=== PATIENT | female | born 1965 | race Caucasian/White ===

== ENCOUNTER 2020-05-08 15:13 | Outpatient (REF) | payer OTHER, SELFPAY ==
[2020-05-08 16:00] LABS: COVID-19 Test Negative (Negative)
== END 2020-05-08 15:14 | disposition home or self-care (01) ==
LOC: HO.LAB 15:13
PROVIDERS: PCP Internal Medicine; Visit Provider Internal Medicine
DX: Z20.828 Contact with and (suspected) exposure to other viral communicable diseases (principal)
CPT/HCPCS: 87635

== ENCOUNTER 2020-05-11 14:15 | Outpatient (REF) | payer OTHER, SELFPAY ==
[2020-05-11 15:09] LABS: COVID-19 Test Negative (Negative)
== END 2020-05-11 14:16 | disposition home or self-care (01) ==
LOC: HO.LAB 14:15
PROVIDERS: Visit Provider Internal Medicine
DX: Z20.828 Contact with and (suspected) exposure to other viral communicable diseases (principal)
CPT/HCPCS: 87635

== ENCOUNTER 2020-05-15 14:26 | Outpatient (REF) | payer OTHER, SELFPAY ==
[2020-05-15 14:44] LABS: COVID-19 Test Negative (Negative)
== END 2020-05-15 14:27 | disposition home or self-care (01) ==
LOC: HO.LAB 14:26
PROVIDERS: Visit Provider Internal Medicine
DX: Z20.828 Contact with and (suspected) exposure to other viral communicable diseases (principal)
CPT/HCPCS: 87635

== ENCOUNTER 2020-06-19 16:42 | Outpatient (REF) | payer OTHER, SELFPAY ==
[2020-06-19 17:50] LABS: COVID-19 Test Negative (Negative); IDNOW Serial# 55D5AD1C
== END 2020-06-19 16:43 | disposition home or self-care (01) ==
LOC: HO.LAB 16:42
PROVIDERS: Visit Provider Internal Medicine
DX: Z20.828 Contact with and (suspected) exposure to other viral communicable diseases (principal)
CPT/HCPCS: 87635; C9803

== ENCOUNTER 2020-07-24 15:42 | Outpatient (REF) | payer OTHER, SELFPAY ==
[2020-07-24 17:51] LABS: COVID-19 Test Negative (Negative)
== END 2020-07-24 15:43 | disposition home or self-care (01) ==
LOC: HO.EMPCOV 15:42
PROVIDERS: Visit Provider Internal Medicine
DX: Z20.822 Contact with and (suspected) exposure to COVID-19 (principal)
CPT/HCPCS: 36415; 87635; C9803

== ENCOUNTER 2020-08-25 13:50 | Outpatient (REF) | payer OTHER, SELFPAY ==
[2020-08-25 15:03] LABS: Influenza A PCR NEGATIVE (Negative); Influenza B PCR NEGATIVE (Negative); Resp Syncy Virus RNA Qual PCR NEGATIVE (Negative); SARS COV2 PCR INHOUSE NEGATIVE (Negative)
== END 2020-08-25 13:51 | disposition home or self-care (01) ==
LOC: HO.LNP 13:50
PROVIDERS: Visit Provider Internal Medicine
DX: Z20.822 Contact with and (suspected) exposure to COVID-19 (principal)
CPT/HCPCS: 0241U

== ENCOUNTER 2020-08-30 19:17 | Outpatient (REF) | payer OTHER, SELFPAY ==
[2020-08-30 20:25] LABS: Influenza A PCR NEGATIVE (Negative); Influenza B PCR NEGATIVE (Negative); Resp Syncy Virus RNA Qual PCR NEGATIVE (Negative); SARS COV2 PCR INHOUSE NEGATIVE (Negative)
== END 2020-08-30 19:18 | disposition home or self-care (01) ==
LOC: HO.EMPCOV 19:17
PROVIDERS: Visit Provider Physician Assistant
DX: J34.89 Other specified disorders of nose and nasal sinuses (principal); R53.81 Other malaise
CPT/HCPCS: 0241U; 36415

== ENCOUNTER 2020-09-20 12:17 | Outpatient (REF) | payer OTHER, SELFPAY ==
--- NOTE | ~2020-09-20 | MM_ITS ---
EXAMINATION: MM SCREENING DIGITAL BREAST TOMOSYNTHESIS, BILATERAL CLINICAL INFORMATION: Screening. Asymptomatic. The lifetime risk of breast cancer based on the Tyrer-Cuzick Model is 18.7%. COMPARISON: Mammography: June 04, 2019 and studies dating back to February 21, 2011 TECHNIQUE: Digital mammography is performed in craniocaudal and mediolateral oblique views along with computer-aided detection (CAD). Digital breast tomosynthesis is performed in implant-displaced craniocaudal and implant-displaced mediolateral oblique views of the left breast along with computer-aided detection (CAD). Synthesized 2D images are generated from the tomosynthesis. FINDINGS: The breasts are heterogeneously dense, which may obscure small masses (ACR BI-RADS breast composition Category c). There is stable parenchymal pattern of the right breast without new abnormal dominant mass or suspicious grouping of microcalcifications. Patient status post unilateral left silicon breast implant. There is a stable parenchymal pattern present. MM/MM tomosynthesis screen imp BI IMPRESSION: There are no significant changes from prior study. ASSESSMENT: BI-RADS 1: Negative RECOMMENDATION: Routine annual mammography screening. This patient's information was entered into a reminder system with a target due date for their next mammogram.
== END 2020-09-20 12:18 | disposition home or self-care (01) ==
LOC: HO.MAMMO 12:17
PROVIDERS: Absent Provider Advanced Practice Midwife; PCP Internal Medicine; Visit Provider Internal Medicine
DX: Z12.31 Encounter for screening mammogram for malignant neoplasm of breast (principal)
CPT/HCPCS: 77063; 77067

== ENCOUNTER 2021-01-05 15:58 | Outpatient (REF) | payer OTHER, SELFPAY ==
--- NOTE | ~2021-01-05 | US_ITS ---
EXAMINATION: US THYROID CLINICAL INFORMATION: Thyroid nodule. COMPARISON: Ultrasound soft tissue head/neck thyroid dated 01/13/2020 and 10/26/2018. TECHNIQUE: Linear transducer grayscale and color Doppler examination with attention to the region of the thyroid. FINDINGS: SIZE: Measurements of the thyroid lobes and nodules are given in sagittal, anteroposterior and transverse dimensions respectively. Right Thyroid Lobe: 4.9 x 1.1 x 1.9 cm, volume 5.4 mL. Previously 5.1 x 1.5 x 1.9 cm, volume 7.6 mL. Parenchyma: The gland echotexture is homogeneous. Thyroid vascularity is normal. Left Thyroid Lobe: 3.7 x 1.2 x 1.4 cm, volume 3.3 mL. Previously 5.0 x 1.4 x 1.7 cm, volume 6.2 mL. Parenchyma: The gland echotexture is homogeneous. Thyroid vascularity is normal. Isthmus: 0.3 cm in maximum AP dimension. Previously 0.4 cm. Estimated total number of nodules greater than or equal to 1 cm: 1. Clinical Research Director nodules are described as follows: 1. Location: Isthmus. Size: 1.0 x 1.0 x 0.5 cm, volume 0.25 mL. Previously: 1.1 x 0.5 x 1.1 cm, volume 0.3 mL. Nodule characteristics: Composition: Solid (2). Echogenicity: Hypoechoic (2). Shape: Not taller than wide (0). Margins: Smooth (0). Echogenic Foci: None (0). ACR TI-RADS total points: 4 ACR TI-RADS category: 4 Significant change in size (>/= 20% in 2 dimensions and minimal increase of 2 mm or 50% or greater increase in volume): No Change in features: Yes. Appears more complex cystic or solid. Change in ACR TI-RADS risk category: No NODES: No lymphadenopathy is seen in the tissue surrounding the thyroid gland. US/US thyroid IMPRESSION: Solitary right thyroid nodule appears more complex cystic or solid but is unchanged in size from previous exams. ACR TI-RADS RECOMMENDATION REFERENCE: Ultrasound-guided fine-needle aspiration, followup ultrasound, no further follow up. * TR1 (0 point) and TR 2 (2 points): No FNA or follow up * TR3 (3 points): FNA if more than or equal to 2.5 cm in maximum dimension, followup ultrasound in 1, 3 and 5 years if 1.5 to 2.4 cm in maximum dimension. * TR4 (4-6 points): FNA if more than or equal to 1.5 cm in maximum dimension, followup ultrasound in 1, 2, 3 and 5 years if 1 to 1.4 cm in maximum dimension. * TR5 (more than or equal to 7 points): FNA if more than or equal to 1 cm in maximum dimension, followup ultrasound every year for 5 years if 0.5 to 0.9 cm in maximum dimension. * TR3, TR4 or TR5 nodules that are below the size threshold for follow up receive no follow up.
== END 2021-01-05 15:59 | disposition home or self-care (01) ==
LOC: HO.US 15:58
PROVIDERS: PCP Internal Medicine; Visit Provider Internal Medicine
DX: E04.1 Nontoxic single thyroid nodule (principal)
CPT/HCPCS: 76536

== ENCOUNTER 2021-04-05 11:54 | Outpatient (REF) | payer OTHER, SELFPAY ==
[2021-04-05 14:00] LABS: MANUAL DIFF FLAG NO
[2021-04-05 14:32] LABS: Basophils Percent Auto 0.5 % (0-2); Eosinophils Absolute Auto 0.2 X10*3/uL (0.0-0.4); Eosinophils Percent Auto 2.8 % (0-4); Hematocrit 41.7 % (37-47); Hemoglobin 13.8 g/dl (12.0-16.0); Imm Gran Abs Auto 0.01 X10*3/uL (0.00-0.03); Imm Gran Pct Auto 0.2 % (0.0-0.4); Lymphocytes Absolute Auto 1.3 X10*3/uL (1.2-4.9); Lymphocytes Percent Auto 21.7 % (20-40); Mean Corpuscular HGB Conc 33.1 g/dl (31.0-35.0); Mean Corpuscular Hemoglobin 30.4 pg (27.0-33.0); Mean Corpuscular Volume 91.9 fL (80-98); Mean Platelet Volume 11.4 fL (9.4-12.3); Monocytes Absolute Auto 0.5 X10*3/uL (0.1-1.2); Monocytes Percent Auto 7.9 % (2-11); Neutrophils Absolute Auto 3.9 X10*3/uL (2.0-8.3); Neutrophils Percent Auto 66.9 % (45-73); Platelet Count 227 X10*3/uL (160-400); Red Blood Count 4.54 X10*6/uL (4.20-5.50); Red Cell Distribution Width 12.5 % (11.0-16.0); White Blood Count 5.8 X10*3/uL (4.8-10.8)
[2021-04-05 14:38] LABS: Alanine Aminotransferase 19 U/L (0-31); Albumin Level 4.3 g/dL (3.5-5.0); Alkaline Phosphatase 58 U/L (39-117); Anion Gap 12 (12-20); Aspartate Amino Transferase 20 U/L (5-31); Bilirubin Total 0.6 mg/dL (0.0-1.0); Blood Urea Nitrogen 11 mg/dL (9-16); C Reactive Protein 0.14 mg/dL (< or = 0.50); Calcium 9.3 mg/dL (8.4-10.2); Carbon Dioxide 28 mmol/L (22-29); Chloride 103 mmol/L (96-108); Estimated Glomerular Filt Rate > 60; Glucose Random 77 mg/dL (60-115); Potassium 4.2 mmol/L (3.3-5.1); Sodium 139 mmol/L (135-145); Total Protein 6.8 g/dL (6.5-8.0)
[2021-04-05 14:50] LABS: Free T4 (Free Thyroxine) 1.07 ng/dL (0.71-1.85); Thyroid Stimulating Hormone 1.44 uIU/mL (0.32-4.0)
[2021-04-05 14:58] LABS: Folate 16.5 ng/mL (> or = 4.0); Vitamin B12 439 pg/mL (200-900)
== END 2021-04-05 11:55 | disposition home or self-care (01) ==
LOC: HO.10HDL 11:54
PROVIDERS: Visit Provider Internal Medicine
DX: M54.9 Dorsalgia, unspecified (principal); G62.9 Polyneuropathy, unspecified; K57.90 Diverticulosis of intestine, part unspecified, without perforation or abscess without bleeding
CPT/HCPCS: 36415; 80053; 82607; 82746; 84439; 84443; 85025; 86140

== ENCOUNTER 2021-04-11 13:26 | Outpatient (REF) | payer OTHER, SELFPAY ==
--- NOTE | ~2021-04-11 | MR_ITS ---
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 COMPARISON: MRI 12/24/2018, 12/11/2017 TECHNIQUE: Imaging was performed with a dedicated breast coil. Prior to the administration of contrast, bilateral axial T1 and bilateral axial T2 weighted sequences were obtained. After the uneventful administration of?8 mL of Gadavist, dynamic contrast-enhanced VIBRANT series through the breasts in the axial plane were performed. Subtracted images were performed and reviewed. A delayed sagittal sequence through both breasts was acquired. Additionally, CAD post-processing, including maximum intensity projections, 3-D reconstructions and kinetic analysis, were performed an independent workstation and reviewed by the interpreting radiologist is a portion of this exam. FINDINGS: The patient's fibroglandular tissue demonstrates minimal background enhancement. LEFT BREAST: Subpectoral implant in place. No suspicious masslike or non-masslike enhancement. No abnormal skin thickening or nipple retraction. No abnormal architectural distortion. Review of the T2 weighted images demonstrates no fibrocystic changes or dilated ducts. Review of kinetic images reveals no additional findings. RIGHT BREAST: No suspicious masslike or non-masslike enhancement. No abnormal skin thickening or nipple retraction. No abnormal architectural distortion. Review of the T2 weighted images demonstrates no fibrocystic changes or dilated ducts. Review of kinetic images reveals no additional findings. There is no suspicious internal mammary chain or axillary adenopathy. Limited views of the chest and abdomen are unremarkable. Cyst within the right lobe of the liver measuring up to 1.7 cm is partially imaged. MR/MR breast BI wo/w con IMPRESSION: No MR specific evidence of malignancy. ASSESSMENT: LEFT BREAST: BI-RADS 1-Negative RIGHT BREAST: BI-RADS 1-Negative RECOMMENDATIONS: Clinical follow-up. Continued annual mammographic surveillance. Further breast MRI as risk factors dictate.
== END 2021-04-11 13:27 | disposition home or self-care (01) ==
LOC: HO.MRI 13:26
PROVIDERS: Visit Provider Advanced Practice Midwife
DX: Z15.01 Genetic susceptibility to malignant neoplasm of breast (principal); Z80.3 Family history of malignant neoplasm of breast
CPT/HCPCS: 77049

== ENCOUNTER → 2021-04-19 12:20 | Outpatient (BNVA) | payer OTHER, SELFPAY | PROVIDERS: PCP Internal Medicine; Visit Provider Internal Medicine ==

== ENCOUNTER 2021-06-06 13:32 | Outpatient (REF) | payer OTHER, SELFPAY ==
[2021-06-06 14:46] LABS: Influenza A PCR NEGATIVE (Negative); Influenza B PCR NEGATIVE (Negative); Resp Syncy Virus RNA Qual PCR NEGATIVE (Negative); SARS COV2 PCR INHOUSE NEGATIVE (Negative)
== END 2021-06-06 13:33 | disposition home or self-care (01) ==
LOC: HO.LNP 13:32
PROVIDERS: Visit Provider Internal Medicine
DX: Z20.822 Contact with and (suspected) exposure to COVID-19 (principal); R05.9 Cough, unspecified; R09.89 Other specified symptoms and signs involving the circulatory and respiratory systems; R51.9 Headache, unspecified
CPT/HCPCS: 0241U

== ENCOUNTER 2021-06-10 11:30 | Outpatient (REF) | payer OTHER, SELFPAY ==
[2021-06-10 12:38] LABS: Influenza A PCR NEGATIVE (Negative); Influenza B PCR NEGATIVE (Negative); Resp Syncy Virus RNA Qual PCR NEGATIVE (Negative); SARS COV2 PCR INHOUSE POSITIVE (Negative)
== END 2021-06-10 11:31 | disposition home or self-care (01) ==
LOC: HO.ED 11:30
PROVIDERS: Visit Provider Physician Assistant Medical
DX: Z20.822 Contact with and (suspected) exposure to COVID-19 (principal)
CPT/HCPCS: 0241U; 36415

== ENCOUNTER 2021-08-02 16:57 | Outpatient (REF) | payer OTHER, SELFPAY ==
[2021-08-02 17:33] LABS: COVID-19 Test Negative (Negative)
== END 2021-08-02 16:58 | disposition home or self-care (01) ==
LOC: HO.LAB 16:57
PROVIDERS: Referring Provider Internal Medicine; Visit Provider Internal Medicine
DX: Z20.822 Contact with and (suspected) exposure to COVID-19 (principal)
CPT/HCPCS: 87635

== ENCOUNTER 2021-12-04 09:45 | Outpatient (REF) | payer OTHER, SELFPAY ==
--- NOTE | ~2021-12-04 | MM_ITS ---
EXAMINATION: MM SCREENING DIGITAL BREAST TOMOSYNTHESIS, BILATERAL CLINICAL INFORMATION: Screening. Asymptomatic. 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 Personal history benign right excisional biopsy years ago. Left implant. COMPARISON: Mammography: 09/20/2020, 06/04/2019, 08/28/2017; MR breasts 04/11/2021. TECHNIQUE: Right: Digital breast tomosynthesis is performed in both the craniocaudal and mediolateral oblique views along with computer-aided detection (CAD). Synthesized 2D images are generated from the tomosynthesis. Left: Digital breast tomosynthesis is performed in craniocaudal and mediolateral oblique views along with additional implant-displaced craniocaudal and implant-displaced mediolateral oblique views. Computer assisted detection (CAD) was utilized for the views. Synthesized 2D images are generated from the tomosynthesis. Additional left CC view is provided. FINDINGS: There are scattered areas of fibroglandular density (ACR BI-RADS breast composition Category b). Breast tissue composition borders on heterogeneously dense. Parenchymal pattern is similar to prior studies. No developing density or interval mass or architectural abnormality. No abnormal calcifications. Left implant is smooth and similar to prior studies. The bilateral axilla and skin contours are unremarkable. No significant changes. MM/MM tomosynthesis screen imp BI IMPRESSION: No significant changes from prior studies. ASSESSMENT: BI-RADS 2: Benign RECOMMENDATION: Routine annual mammography screening. This patient's information was entered into a reminder system with a target due date for their next mammogram.
== END 2021-12-04 09:46 | disposition home or self-care (01) ==
LOC: HO.MAMMO 09:45
PROVIDERS: Visit Provider Internal Medicine
DX: Z12.31 Encounter for screening mammogram for malignant neoplasm of breast (principal)
CPT/HCPCS: 77063; 77067

== ENCOUNTER 2022-06-21 15:45 | Outpatient (REF) | payer OTHER, SELFPAY ==
--- NOTE | ~2022-06-21 | US_ITS ---
EXAMINATION: US THYROID CLINICAL INFORMATION: Nontoxic multinodular goiter. COMPARISON: Ultrasound thyroid 01/05/2021 and 01/13/2020. TECHNIQUE: Linear transducer lee-scale and color Doppler examination with attention to the region of the thyroid. FINDINGS: SIZE: Measurements of the thyroid lobes and nodules are given in sagittal, anteroposterior and transverse dimensions respectively. Right Thyroid Lobe: 5.3 x 1.3 x 1.8 cm, volume 6.6 mL. Previously 4.9 x 1.1 x 1.9 cm, volume 5.4 mL. Parenchyma: The gland echotexture is homogeneous. Thyroid vascularity is normal. Left Thyroid Lobe: 5.1 x 1.3 x 1.6 cm, volume 5.6 mL. Previously 3.7 x 1.2 x 1.4 cm, volume 3.3 mL. Parenchyma: The gland echotexture is homogeneous. Thyroid vascularity is normal. Isthmus: 0.4 cm in maximum AP dimension. Previously 0.3 cm. Estimated total number of nodules greater than or equal to 1 cm: 0. Fiberglass Autobody Repairer nodules are described as follows: 1. Location: Isthmus. Size: 1.1 x 0.5 x 1.0 cm, volume 0.3 mL. Previously: 1.0 x 1.0 x 0.5 cm, volume 0.25 mL. Nodule characteristics: Composition: Solid (2). Echogenicity: Hypoechoic (2). Shape: Not taller than wide (0). Margins: Smooth (0). Echogenic Foci: None (0). ACR TI-RADS total points: 4 Previous: 4 ACR TI-RADS category: 4 Previous: 4 Significant change in size (>/= 20% in 2 dimensions and minimal increase of 2 mm or 50% or greater increase in volume): None. Change in features: None. Change in ACR TI-RADS risk category: None. NODES: No lymphadenopathy is seen in the tissue surrounding the thyroid gland. US/US thyroid IMPRESSION: Solitary nodule in the isthmus, unchanged to last 2 exams. ACR TI-RADS RECOMMENDATION REFERENCE: Ultrasound-guided fine-needle aspiration, followup ultrasound, no further follow up. * TR1 (0 point) and TR 2 (2 points): No FNA or follow up * TR3 (3 points): FNA if more than or equal to 2.5 cm in maximum dimension, followup ultrasound in 1, 3 and 5 years if 1.5 to 2.4 cm in maximum dimension. * TR4 (4-6 points): FNA if more than or equal to 1.5 cm in maximum dimension, followup ultrasound in 1, 2, 3 and 5 years if 1 to 1.4 cm in maximum dimension. * TR5 (more than or equal to 7 points): FNA if more than or equal to 1 cm in maximum dimension, followup ultrasound every year for 5 years if 0.5 to 0.9 cm in maximum dimension. * TR3, TR4 or TR5 nodules that are below the size threshold for follow up receive no follow up.
== END 2022-06-21 15:46 | disposition home or self-care (01) ==
LOC: HO.US 15:45
PROVIDERS: Visit Provider Internal Medicine
DX: E04.2 Nontoxic multinodular goiter (principal)
CPT/HCPCS: 76536

== ENCOUNTER 2022-06-26 12:31 | Outpatient (REF) | payer OTHER, SELFPAY ==
[2022-06-26 15:06] LABS: Thyroid Stimulating Hormone 0.99 uIU/mL (0.32-4.0)
== END 2022-06-26 12:32 | disposition home or self-care (01) ==
LOC: HO.LAB 12:31
PROVIDERS: PCP Internal Medicine; Visit Provider Internal Medicine
DX: E04.2 Nontoxic multinodular goiter (principal)
CPT/HCPCS: 36415; 84439; 84443

== ENCOUNTER 2022-09-13 10:44 | Outpatient (REF) | payer OTHER, SELFPAY ==
--- NOTE | ~2022-09-13 | MR_ITS ---
EXAMINATION: MR BREAST WITHOUT AND WITH CONTRAST, BILATERAL CLINICAL INFORMATION: 56-year-old for high-risk screening Chek 2 mutation COMPARISON: MRI 04/11/2021, 12/24/2018 and 12/11/2017. Correlation to mammogram of 12/04/2021 TECHNIQUE: Imaging was performed with a dedicated breast coil. Prior to the administration of contrast, bilateral axial T1 and bilateral axial T2 weighted sequences were obtained. After the uneventful administration of?8 mL of Gadavist, dynamic contrast-enhanced VIBRANT series through the breasts in the axial plane were performed. Subtracted images were performed and reviewed. A delayed sagittal sequence through both breasts was acquired. Additionally, CAD post-processing, including maximum intensity projections, 3-D reconstructions and kinetic analysis, were performed an independent workstation and reviewed by the interpreting radiologist is a portion of this exam. FINDINGS: The patient's fibroglandular tissue demonstrates minimal background enhancement. LEFT BREAST: There is a retropectoral implant. No suspicious masslike or non-masslike enhancement. No abnormal skin thickening or nipple retraction. No abnormal architectural distortion. Review of the T2 weighted images demonstrates no fibrocystic changes or dilated ducts. Review of kinetic images reveals no additional findings. RIGHT BREAST: No suspicious masslike or non-masslike enhancement. No abnormal skin thickening or nipple retraction. No abnormal architectural distortion. Review of the T2 weighted images demonstrates no fibrocystic changes or dilated ducts. Review of kinetic images reveals no additional findings. There is no suspicious internal mammary chain or axillary adenopathy. Limited views of the chest and abdomen are unremarkable. MR/MR breast BI wo/w con IMPRESSION: No MR specific evidence of malignancy. ASSESSMENT: LEFT BREAST: BI-RADS 1-Negative RIGHT BREAST: BI-RADS 1-Negative RECOMMENDATIONS: Routine mammographic imaging as per most recent study and MRI as per high-risk protocol.
== END 2022-09-13 10:45 | disposition home or self-care (01) ==
LOC: HO.MRI 10:44
PROVIDERS: Visit Provider Advanced Practice Midwife
DX: Z15.01 Genetic susceptibility to malignant neoplasm of breast (principal); Z80.3 Family history of malignant neoplasm of breast
CPT/HCPCS: 77049; A9585

== ENCOUNTER 2022-12-12 16:44 | Outpatient (REF) | payer OTHER, SELFPAY ==
[2022-12-12 16:55] LABS: MANUAL DIFF FLAG NO
[2022-12-12 17:39] LABS: Basophils Percent Auto 0.6 % (0-2); Eosinophils Absolute Auto 0.1 X10*3/uL (0.0-0.4); Hematocrit 42.1 % (37.0-47.0); Hemoglobin 13.8 g/dl (12.0-16.0); Imm Gran Abs Auto 0.01 X10*3/uL (0.00-0.03); Imm Gran Pct Auto 0.1 % (0.0-0.4); Lymphocytes Absolute Auto 2.1 X10*3/uL (1.2-4.9); Lymphocytes Percent Auto 29.8 % (20-40); Mean Corpuscular HGB Conc 32.8 g/dl (31.0-35.0); Mean Corpuscular Hemoglobin 29.2 pg (27.0-33.0); Mean Platelet Volume 10.9 fL (9.4-12.3); Monocytes Absolute Auto 0.4 X10*3/uL (0.1-1.2); Monocytes Percent Auto 5.8 % (2-11); Neutrophils Absolute Auto 4.4 x10*3/uL (2.0-8.3); Neutrophils Percent Auto 61.7 % (45-73); Platelet Count 256 X10*3/uL (160-400); Red Blood Count 4.73 X10*6/uL (4.20-5.50); Red Cell Distribution Width 12.5 % (11.0-16.0); White Blood Count 7.1 X10*3/uL (4.8-10.8)
[2022-12-12 18:12] LABS: Thyroid Stimulating Hormone 1.87 uIU/mL (0.32-4.0); Vitamin D 25-OH Total 39.3 ng/mL (>30)
== END 2022-12-12 16:45 | disposition home or self-care (01) ==
LOC: HO.LAB 16:44
PROVIDERS: PCP Internal Medicine; Visit Provider Advanced Practice Midwife
DX: E55.9 Vitamin D deficiency, unspecified (principal); R53.83 Other fatigue
CPT/HCPCS: 36415; 82306; 84443; 85025

== ENCOUNTER 2023-03-07 10:34 | Outpatient (REF) | payer OTHER, SELFPAY ==
--- NOTE | ~2023-03-07 | MM_ITS ---
EXAMINATION: MM SCREENING DIGITAL BREAST TOMOSYNTHESIS, BILATERAL CLINICAL INFORMATION: Screening. Asymptomatic. There is no personal history of breast cancer. The patient has a history of a CHECK 2 MUTATION. Patient's family history is notable for a maternal aunt having been diagnosed at age 35. This information places the patient at significantly increased risk of developing breast cancer over her lifetime. Patient also undergoes annual adjunct screening for breast cancer with MRI. The last MRI was performed on 09/13/2022 and showed no evidence of malignancy. The patient has a history of prior breast surgery for benign disease and unilateral left breast implant.. COMPARISON: Mammography: This study is compared with prior exams dating back to 2019. TECHNIQUE: Digital breast tomosynthesis is performed in both the craniocaudal and mediolateral oblique views along with computer-aided detection (CAD). Synthesized 2D images are generated from the tomosynthesis. FINDINGS: There are scattered areas of fibroglandular density (ACR BI-RADS breast composition Category b). There are no significant masses, abnormal calcifications, or other abnormalities. There is a unilateral, left retropectoral, mammographically intact silicone breast implant. MM/MM tomosynthesis screening BI IMPRESSION: No mammographic evidence of malignancy. ASSESSMENT: BI-RADS BI-RADS 1 - Negative RECOMMENDATION: Routine annual mammography screening. 1 year F/U This examination should not preclude the clinical evaluation of a suspicious palpable abnormality. This patient's information was entered into a reminder system with a target due date for their next mammogram.
== END 2023-03-07 10:35 | disposition home or self-care (01) ==
LOC: HO.MAMMO 10:34
PROVIDERS: PCP Internal Medicine; Visit Provider Internal Medicine
DX: Z12.31 Encounter for screening mammogram for malignant neoplasm of breast (principal)
CPT/HCPCS: 77063; 77067

== ENCOUNTER → 2023-03-07 10:45 | Outpatient (BNV) | payer OTHER, SELFPAY | PROVIDERS: PCP Internal Medicine; Visit Provider Radiology Diagnostic Radiology | DX: Z12.31 Encounter for screening mammogram for malignant neoplasm of breast (principal) | CPT/HCPCS: 77063; 77067 ==

== ENCOUNTER 2023-06-18 15:16 | Emergency (ER) | payer OTHER, SELFPAY ==
--- NOTE | ~2023-06-18 | CT_ITS ---
EXAMINATION: CT ABDOMEN AND PELVIS WITHOUT CONTRAST CLINICAL INFORMATION: Abdominal pain. COMPARISON: None available. TECHNIQUE: Multidetector volumetric imaging was performed from the superior aspect of the liver through the pubic symphysis. Sagittal and coronal reformatted images were obtained on the technologist's workstation. This CT examination was performed using dose optimization techniques as appropriate, variously including the following: *Automated exposure control *Adjustment of mA and/or kV according to patient size (this includes techniques or standardized protocols for targeted exams where dose is matched to indication/reason for exam; i.e. extremities or head) *Use of iterative reconstruction technique DLP: 612 mGy-cm FINDINGS: LUNG BASES: The visualized lung bases are unremarkable. LIVER, GALLBLADDER, AND BILIARY TREE: There are scattered hepatic hypodensities measuring up to 2.1 cm at the dome of the liver likely cysts. There is no intrahepatic biliary duct dilatation. The gallbladder is unremarkable with no evidence of radiopaque gallstones, gallbladder wall thickening, or obvious pericholecystic inflammatory changes. PANCREAS: Unremarkable. SPLEEN: Unremarkable. ADRENAL GLANDS: Unremarkable. KIDNEYS AND URETERS: The kidneys are normal in size, shape, and attenuation. No hydronephrosis, hydroureter, or calculi seen. No perinephric stranding. BLADDER: Unremarkable. GASTROINTESTINAL TRACT: The small and large bowel are unremarkable. The appendix is unremarkable. ABDOMINAL WALL: There is a small umbilical hernia containing fat. LYMPH NODES: Normal. VASCULAR: Unremarkable. PELVIC VISCERA: Unremarkable. OSSEOUS STRUCTURES: There is mild diffuse thoracolumbar disc degenerative change. CT/CT abdomen pelvis wo IV con IMPRESSION: No renal calculi or renal collecting system obstructive change. No acute intra-abdominal process. Fleischner guidelines were followed.
[2023-06-18 16:22] VITALS: BP 173/90; PULSE 97; RESP 18; TEMP 36.7; O2SAT 100; BMI 26.7
--- NOTE | 2023-06-18 16:23 | ED.GENADULT ---
HPI - General Adult General Chief complaint: Back Pain/Injury Stated complaint: Upper back pain Time Seen by Provider: 06/18/23 17:14 Source: patient Mode of arrival: ambulatory Limitations: no limitations History of Present Illness HPI narrative: Patient is a 57-year-old female presenting to the emergency department with complaint of mid back pain which began early this morning. States she has taken ibuprofen and Tylenol with aspirin with little relief. Denies any dysuria, frequency, urinary symptoms. Denies any abdominal pain. Does report some nausea but denies vomiting or diarrhea. Denies fevers. Denies chest pain or shortness of breath. Reports cough but states ?I always have a cough. ? Denies any recent lifting or other strenuous activities, denies any recent falls or other trauma. Denies radiation of pain. Denies saddle anesthesia or bowel or bladder incontinence. MD complaint: Back pain Onset (ago): hour(s) Location: back Radiation: non-radiation Severity: severe Quality: aching Pain Consistency: constant Relieving factors: none Exacerbating factors: none Associated symptoms: nausea/vomiting (Reports nausea, denies vomiting) Treatments prior to arrival: NSAID and aspirin Related Data Home Medications Medication Instructions Recorded Confirmed cyclobenzaprine 10 mg tablet 10 mg PO BEDTIME PRN 04/19/21 06/27/22 estradiol 0.075 mg/24 hr patch transdermal 04/19/21 06/27/22 semiweekly transdermal patch ibuprofen 800 mg tablet 800 mg PO Q8H PRN 04/19/21 06/27/22 multivitamin 1 tab PO DAILY 04/19/21 06/27/22 naproxen 500 mg tablet 500 mg PO Q12H pain 04/19/21 06/27/22 Previous Rx's Medication Instructions Recorded cyclobenzaprine 10 mg tablet 10 mg PO TID PRN muscle spasm #10 06/18/23 tabs ibuprofen 600 mg tablet 600 mg PO Q6H PRN pain #20 tabs 06/18/23 lidocaine 5 % topical patch 1 patch topical DAILY #15 ea 06/18/23 Allergies Allergy/AdvReac Type Severity Reaction Status Date / Time No Known Allergies Allergy Verified 06/18/23 16:22 Review of Systems Review of Systems: As per HPI. Yes all other systems are reviewed and are negative Constitutional: Constitutional: Reports as per HPI [facility] Past Medical History Medical History Multinodular thyroid Surgical History H/O left breast implant H/O vaginal hysterectomy Family History Family History Father COPD (chronic obstructive pulmonary disease) Hypertension Mother Hypertension Pulmonary disease Glaucoma Social History Social History Alcohol intake: current Alcohol intake frequency: does not drink Patient Tobacco Use Status: Former Tobacco user Quit Date: Many years ago Advance Directives: No Advance Directives Information Provided: No Physical Exam ED Vital Signs: Vital Signs - 24 hr 06/18/23 16:22 Temperature 98.1 F Pulse Rate 97 Respiratory Rate 18 Blood Pressure 173/90 H Pulse Oximetry 100 Oxygen Delivery Method Room Air BMI result Body Mass Index 26.7 Vital signs have been reviewed and appear to be correct. Blood pressure elevated. Heart rate normal. Respiratory rate normal. Temperature normal. Oxygen saturation normal. Const General: cooperative, healthy appearing and no acute distress Orientation/consciousness: oriented to person, oriented to place, oriented to time and patient oriented x3 Limitations: no limitations [facility] Head: Yes normocephalic and Yes atraumatic Ears: external ears normal General nose exam: Normal external nose present Face and sinus: Yes face symmetric Mouth: oropharynx normal and moist mucous membranes Throat: Yes uvula midline Eyes Pupils: Equal, round and reactive pupils present Neck Neck: Yes normal visual inspection and Yes supple Resp Effort & Inspection: normal respiratory effort and able to speak in complete sentences Auscultation: clear to auscultation bilaterally Cardio Rate: regular rate Rhythm: regular rhythm Heart sounds: S1 normal heart sound present and S2 normal heart sound present GI Palpation (GI): Soft to palpation and nontender Auscultation: normoactive bowel sounds General: Yes no CVA tenderness Back/Spine/Pelvis Back: no CVA tenderness Thoracic/Lumbar Spine: thoracic and lumbar spine normal to inspection, thoraco-lumbar ROM normal, pain with thoraco-lumbar ROM, paraspinal muscle tenderness bilaterally in the mid thoracic, No thoracic spinal tenderness and No lumbar spinal tenderness Skin General skin exam: elasticity normal and turgor normal Neuro General: oriented to person, oriented to place, oriented to time, patient oriented x3, moves all extremities, no focal motor deficits and CN's II-XI intact bilaterally Cranial nerves: Yes Equal, round and reactive pupils present Cognition (Neuro): normal cognition Extrem General: Yes full ROM, Yes no pedal edema and Yes no calf tenderness Psych Mental Status: mental status grossly normal Affect: normal affect Thought process: Normal thought process present Course Course Course Narrative: This is an RME: Additional HPI, ROS, PE not included below will be deferred to primary provider. This is a 24-hpan-ely-female, with a hx of multinodular thyroid, atrial fibrillation, and asthma, presenting to the emergency department with a complaint of flank pain. Pain woke her up in the middle of the night. Admitting to having some nausea. No urinary symptoms. Plan: Labs, UA, CT abd Medical Decision Making Medical Decision Making [facility] Narrative: Patient is a 57-year-old female presenting to the emergency department with complaint of mid back pain which began early this morning. On exam patient is awake, A+Ox3, BP elevated, VS otherwise WNL, afebrile, normal neurological exam without focal deficits, physical exam findings as above. Given reported symptoms and physical exam findings, initial differential includes muscle strain, UTI/pyelonephritis, renal colic, pneumonia, degenerative disc disease, spondylolisthesis, disc herniation. No red flag findings concerning for spinal epidural abscess, cauda equina, cord compression. Labs unremarkable. No evidence of infection on urinalysis. CT notable for no evidence of calculi or hydronephrosis, no acute intra-abdominal process. My interpretation is in agreement with the radiologist's interpretation. Patient requesting discharge prior to chest x-ray, states she feels as though pain is musculoskeletal and unlikely pneumonia. Feel comfortable with this as patient is afebrile and lungs are clear. Will prescribe cyclobenzaprine, lidocaine patches, ibuprofen. Instructed patient to follow-up with primary care provider. Return precautions discussed. Patient verbalized understanding of and agreement with plan. Differential Diagnosis Differential Diagnoses: The differential diagnosis associated with the presentation includes As per [facility]. Lab Data [facility] Lab Attestation statement: I reviewed the patient's lab results. As per [facility]. 06/18/23 16:41 06/18/23 16:41 Labs: Lab Results 06/18/23 06/18/23 Range/Units 16:41 17:53 WBC 9.7 (4.8-10.8) X10*3/uL RBC 4.87 (4.20-5.50) X10*6/uL Hgb 14.6 (12.0-16.0) g/dl Hct 43.6 (37.0-47.0) % MCV 89.5 (80.0-98.0) fL MCH 30.0 (27.0-33.0) pg MCHC 33.5 (31.0-35.0) g/dl RDW 12.8 (11.0-16.0) % Plt Count 266 (160-400) X10*3/uL MPV 10.4 (9.4-12.3) fL Immature Gran % (Auto) 0.2 (0.0-0.4) % Neut % (Auto) 72.1 (45-73) % Lymph % (Auto) 19.5 L (20-40) % Burnett % (Auto) 6.7 (2-11) % Eos % (Auto) 1.1 (0-4) % Baso % (Auto) 0.4 (0-2) % Lymph # (Auto) 1.9 (1.2-4.9) X10*3/uL Burnett # (Auto) 0.7 (0.1-1.2) X10*3/uL Eos # (Auto) 0.1 (0.0-0.4) X10*3/uL Baso # (Auto) 0.0 (0.0-0.2) X10*3/uL Abs Immat Gran (auto) 0.02 (0.00-0.03) X10*3/uL Absolute Neuts (auto) 7.0 (2.0-8.3) x10*3/uL Absolute Nucleated RBC 0.000 (0.0-0.012) X10*3/uL Nucleated RBC % (auto) 0.0 (0.0-0.2) /100WBC Sodium 138 (135-145) mmol/L Potassium 3.9 (3.3-5.1) mmol/L Chloride 101 (96-108) mmol/L Carbon Dioxide 28 (22-29) mmol/L Anion Gap 13 (12-20) BUN 11 (9-16) mg/dL Creatinine 0.73 (0.5-1.4) mg/dL Estim Creat Clear Calc 93.2 Estimated GFR > 60 Random Glucose 97 (60-115) mg/dL Calcium 9.8 (8.4-10.2) mg/dL Total Bilirubin 0.6 (0.0-1.0) mg/dL Direct Bilirubin 0.1 (0.0-0.5) mg/dL AST 20 (5-31) U/L ALT 15 (0-31) U/L Alkaline Phosphatase 63 (39-117) U/L Total Protein 7.8 (6.5-8.0) g/dL Albumin 4.6 (3.5-5.0) g/dL Urine Color Yellow Urine Appearance Clear Urine pH 5.5 (5.0-9.0) Ur Specific [place] >= 1.030 H (1.005-1.025) Urine Protein Negative (Neg-Trace) mg/dL Urine Glucose (UA) Negative (Negative) mg/dL Urine Ketones Trace (Negative) mg/dL Urine Blood Negative (Negative) Urine Nitrite Negative (Negative) Ur Leukocyte Esterase Negative (Negative) Independent Interpretation I performed an independent interpretation of an: Plain X-Ray and CT Scan Interpretation: No evidence of calculi or hydronephrosis on CT Radiology Impression Discussion of test interpretation with radiology: I have reviewed the radiologist's reading. Radiologist Impression: CT/CT abdomen pelvis wo IV con IMPRESSION: No renal calculi or renal collecting system obstructive change. No acute intra-abdominal process. Fleischner guidelines were followed. External Record Review External record reviewed: Inpatient record, Office record and Outpatient record Prescription Management I considered prescription management with: Pain Medication and Other Discharge Plan Discharge Clinical Impression: Strain of mid-back Qualifiers: Encounter type: initial encounter Qualified Code(s): S29.012A - Strain of muscle and tendon of back wall of thorax, initial encounter Patient Disposition: Home, Self-Care Instructions: Thoracic Back Strain (ED) Additional Instructions: You were evaluated in the emergency department today for back pain. Your evaluation did not show signs of medical conditions requiring emergent intervention at this time. We recommended that you use ibuprofen or Tylenol per package directions every 6 hours as needed for pain. If necessary, you can alternate these medications so that you take one medication every 3 hours. For instance, at noon take ibuprofen, then at 3:00 p.m. take Tylenol, then at 6:00 p.m. take ibuprofen. You have been prescribed a muscle relaxer which you may take every 8 hours as needed for spasms. You have been prescribed 5% topical lidocaine patches which you can wear for up to 12 hours in a 24 hour period. Do not apply heat directly over the patches. Please schedule an appointment for follow-up with your primary care physician this week for further evaluation of your symptoms. Return to the emergency department if you experience worsening back pain, difficulty walking, fevers, numbness, tingling, incontinence, groin numbness or tingling, or any other concerning symptoms. Prescriptions: New cyclobenzaprine 10 mg tablet 10 mg PO TID PRN (Reason: muscle spasm) Qty: 10 0RF ibuprofen 600 mg tablet 600 mg PO Q6H PRN (Reason: pain) Qty: 20 0RF lidocaine 5 % adhesive patch,medicated 1 patch topical DAILY Qty: 15 0RF Rx Instructions: leave on most painful area for up to 12 hrs No Action estradiol 0.075 mg/24 hr patch semiweekly transdermal multivitamin Tablet 1 tab PO DAILY cyclobenzaprine 10 mg tablet 10 mg PO BEDTIME PRN naproxen 500 mg tablet 500 mg PO Q12H ibuprofen 800 mg tablet 800 mg PO Q8H PRN Stand Alone Forms: Work/School Release
[2023-06-18 16:48] LABS: MANUAL DIFF FLAG NO
[2023-06-18 16:50] LABS: Basophils Percent Auto 0.4 % (0-2); Eosinophils Absolute Auto 0.1 X10*3/uL (0.0-0.4); Eosinophils Percent Auto 1.1 % (0-4); Hematocrit 43.6 % (37.0-47.0); Hemoglobin 14.6 g/dl (12.0-16.0); Imm Gran Abs Auto 0.02 X10*3/uL (0.00-0.03); Imm Gran Pct Auto 0.2 % (0.0-0.4); Lymphocytes Absolute Auto 1.9 X10*3/uL (1.2-4.9); Lymphocytes Percent Auto 19.5 % (20-40); Mean Corpuscular HGB Conc 33.5 g/dl (31.0-35.0); Mean Corpuscular Volume 89.5 fL (80.0-98.0); Mean Platelet Volume 10.4 fL (9.4-12.3); Monocytes Absolute Auto 0.7 X10*3/uL (0.1-1.2); Monocytes Percent Auto 6.7 % (2-11); Neutrophils Percent Auto 72.1 % (45-73); Platelet Count 266 X10*3/uL (160-400); Red Blood Count 4.87 X10*6/uL (4.20-5.50); Red Cell Distribution Width 12.8 % (11.0-16.0); White Blood Count 9.7 X10*3/uL (4.8-10.8)
[2023-06-18 17:06] LABS: Alanine Aminotransferase 15 U/L (0-31); Albumin Level 4.6 g/dL (3.5-5.0); Alkaline Phosphatase 63 U/L (39-117); Anion Gap 13 (12-20); Aspartate Amino Transferase 20 U/L (5-31); Bilirubin Direct 0.1 mg/dL (0.0-0.5); Bilirubin Total 0.6 mg/dL (0.0-1.0); Blood Urea Nitrogen 11 mg/dL (9-16); Calcium 9.8 mg/dL (8.4-10.2); Carbon Dioxide 28 mmol/L (22-29); Chloride 101 mmol/L (96-108); Creatinine Clr Calc Pharmacy 93.2; Estimated Glomerular Filt Rate > 60; Glucose Random 97 mg/dL (60-115); Potassium 3.9 mmol/L (3.3-5.1); Sodium 138 mmol/L (135-145); Total Protein 7.8 g/dL (6.5-8.0)
--- NOTE | 2023-06-18 17:55 | PC.NURSE ---
urine obtained/sent to lab.
[2023-06-18 18:04] LABS: Appearance Urine Clear; Color Urine Yellow; Glucose Urine UA Negative (Negative); Leukocyte Esterase Urine Negative (Negative); Nitrite Urine Negative (Negative); PH 5.5 (5.0-9.0); Specific Gravity - Urine >= 1.030 (1.005-1.025); Urine Blood Negative (Negative); Urine Ketones Trace mg/dL (Negative); Urine Protein Negative (Neg-Trace)
[2023-06-18 18:43] VITALS: BP 141/74; PULSE 92; RESP 18; TEMP 37.2
== END 2023-06-18 18:46 | disposition home or self-care (01) ==
PROVIDERS: Physician Assistant Medical; Emergency Provider Emergency Medicine; PCP Internal Medicine
DX: M54.6 Pain in thoracic spine (principal); R11.2 Nausea with vomiting, unspecified; R05.9 Cough, unspecified; R10.9 Unspecified abdominal pain; Z79.899 Other long term (current) drug therapy; Z87.891 Personal history of nicotine dependence
CPT/HCPCS: 36415; 74176; 80048; 80076; 81003; 85025; 99284

== ENCOUNTER 2023-11-10 07:05 | Day surgery (SDC) | payer OTHER, SELFPAY ==
[2023-11-06 15:19] VITALS: BMI 26.5
[2023-11-10 07:10] VITALS: BP 142/80; PULSE 100; RESP 20; TEMP 36.1; O2SAT 98
--- NOTE | 2023-11-10 07:15 | HO.ANESPROP2 ---
HPI - Anesthesia Eval Consult details Narrative: 57yo female patient for Colonoscopy PMFSH Active Problems Active Problems: All Active Problems Multinodular thyroid (Acute) Paroxysmal afib. No meds Multinodular goitre. No meds Past Medical History Medical History Palpitations PAF (paroxysmal atrial fibrillation) Raynauds syndrome Vertigo Multinodular thyroid Family History Family History Father COPD (chronic obstructive pulmonary disease) Hypertension Mother Hypertension Pulmonary disease Glaucoma Family history of problems with anesthesia: No Surgical History Surgical History H/O colonoscopy H/O left breast implant H/O vaginal hysterectomy History of Problems with Anesthesia: No Social History Social History Household Members: Spouse Alcohol intake: never Patient Tobacco Use Status: Former Tobacco user Quit Date: Many years ago Advance Directives: No Advance Directives Information Provided: Yes Meds Allergies Allergy/AdvReac Type Severity Reaction Status Date / Time No Known Allergies Allergy Verified 06/18/23 16:22 Active Medications: Current Medications Sodium Biphosphate/Sodium Phosphate (Sodium Phosphate,[place]averick-Dibasic 133 Ml Enema) [address] ONCE PRN PRN Reason: Poor Colonoscopy Prep Results Home Medications ?Medication ?Instructions ?Recorded ?Confirmed ?Last Taken ?Type cyclobenzaprine 10 mg tablet 10 mg PO BEDTIME PRN 04/19/21 06/27/22 Unknown History estradiol 0.075 mg/24 hr patch transdermal 04/19/21 06/27/22 Unknown History semiweekly transdermal patch ibuprofen 800 mg tablet 800 mg PO Q8H PRN Pain 04/19/21 06/27/22 11/03/23 History multivitamin 1 tab PO DAILY 04/19/21 06/27/22 Unknown History naproxen 500 mg tablet 500 mg PO Q12H pain 04/19/21 06/27/22 11/02/23 History meloxicam 15 mg tablet 15 mg PO DAILY 11/10/23 11/10/23 11/02/23 History Exam Height,Weight and Vital Signs: Height 5 ft 8 in Weight 78.925 kg Vital Signs Temp Pulse Resp BP Pulse Ox O2 Del Method 11/10/23 07:10 97 F 100 20 142/80 H 98 Room Air Airway Mallampati Class: I TM Dist: >3cm Neck ROM: Full Loose/Missing/Broken Teeth: Yes (1broken tooth bottom right back) Heart: RRR Lungs: CTAB Assessment and Plan Assessment Anesthesia Assessment: Anesthesia Plan Discussed and Chart Reviewed Final Anesthetic Review Family History of Problems with Anesthesia: No History of Problems with Anesthesia: No NPO: Yes ASA Class: II Final Preanesthetic Review: No Changes in Pt Med Stat, Meds/Allgs Chart Reviewed, Consent Obtained/Reviewed and Anes Risks/Benef Reviewed Patient Risk: Intermediate Procedure Risk: Low Assessment/Block/Sedation in SS: Assess/Block/Sedation-SS Anesthetic Plan Anesthetic Plan: MAC: and TIVA Disposition: Standard PACU
[2023-11-10] MEDS: Lactated Ringers 1,000 ML 50 ML IVCONT (07:30)
[2023-11-10 08:17] VITALS: BP 106/65; PULSE 81; RESP 16; TEMP 36.1; O2SAT 97
--- NOTE | 2023-11-10 08:23 | PM.OP ---
Brief Operative Note Date of Service: 11/10/23 Pre-op diagnosis: Screening Post-op diagnosis: other (Diverticulosis) Procedure: Colonosocpy to the cecum Surgeon: Toby Marvin MD Anesthesia: MAC Was an Electronic Equipment Repairer used for this Procedure?: No Estimated blood loss (mL): 0 Pathology: none sent Condition: stable Disposition: PACU
[2023-11-10 08:32] VITALS: BP 112/68; PULSE 72; RESP 18; O2SAT 98
[2023-11-10 08:47] VITALS: BP 137/85; PULSE 62; RESP 18; TEMP 36.6; O2SAT 100
--- NOTE | 2023-11-10 08:47 | OP_ITS ---
DATE OF SERVICE: 11/10/2023 SURGEON: Toby Marvin MD INDICATIONS: The patient presents for evaluation of colorectal cancer screening and family history of colon cancer. Full consent has been obtained from her for this, including risks of bleeding and perforation. PREOPERATIVE DIAGNOSIS: Colorectal cancer screening. POSTOPERATIVE DIAGNOSIS: PROCEDURE PERFORMED: Colonoscopy to the cecum. ESTIMATED BLOOD LOSS: COMPLICATIONS: ANESTHESIA: Monitored anesthesia care. ASSISTANTS: SPECIMENS: POSTOPERATIVE DIAGNOSES: Colorectal cancer screening, mild sigmoid diverticulosis, small internal hemorrhoids. DESCRIPTION OF PROCEDURE: The patient was placed in the left lateral decubitus position. The digital rectal exam revealed no abnormalities. The Olympus video pediatric colonoscope was then entered into the rectum and advanced easily to the cecum. Once in the cecum, I did identify normal-appearing cecal pouch with appendiceal orifice and a normal-appearing ileocecal valve. There was transillumination of light deep in the right lower quadrant. The entire cecum and ileocecal valve appeared normal. The scope was slowly withdrawn assessing all mucosal surfaces carefully. Preparation was excellent. I did not visualize any sign of polyps, colitis, nor angiodysplasia. There was a mild amount of sigmoid diverticulosis. In the rectum, scope was retroflexed, visualizing small internal hemorrhoids, but no other pathology. The rectal mucosa appeared normal. The scope was straightened and withdrawn from the patient. She tolerated the procedure well and was returned to the recovery area in stable condition. IMPRESSION: 1. Mild sigmoid diverticulosis. 2. Small internal hemorrhoids. PLAN: Given today's negative exam, as well as a negative exam in 2018, I would recommend an another colonoscopy in approximately 7 years given her family history of colon cancer in her mother. However, mother was elderly when she had colon cancer and therefore, I do not think it needs to be 5 years, so I think approximately 7 years would be adequate. She will, otherwise, see me on a p.r.n. basis. MD VICKY Gomez/SUMAN / [phone]
== END 2023-11-10 09:39 | disposition home or self-care (01) ==
PROVIDERS: PCP Internal Medicine; Visit Provider Internal Medicine
PROC: 0DJD8ZZ Inspection of Lower Intestinal Tract, Via Natural or Artificial Opening Endoscopic (ICD-10-PCS; CPT 45378; principal; 2023-11-10 08:40)
DX: Z12.11 Encounter for screening for malignant neoplasm of colon (principal); Z80.0 Family history of malignant neoplasm of digestive organs; K57.30 Diverticulosis of large intestine without perforation or abscess without bleeding; K64.8 Other hemorrhoids; I73.00 Raynaud's syndrome without gangrene; R00.2 Palpitations; R42 Dizziness and giddiness; Z79.899 Other long term (current) drug therapy; Z79.1 Long term (current) use of non-steroidal anti-inflammatories (NSAID); Z98.82 Breast implant status
CPT/HCPCS: 45378; J2704

== ENCOUNTER 2023-12-04 17:03 | Outpatient (REF) | payer OTHER, SELFPAY ==
--- NOTE | ~2023-12-04 | MR_ITS ---
EXAMINATION: MR LUMBAR SPINE WITHOUT CONTRAST CLINICAL INFORMATION: Low back pain, radiating to right lower extremity COMPARISON: MRI lumbar spine on 06/06/2014 TECHNIQUE: MRI of the lumbar spine was obtained using routine sequences without contrast. FINDINGS: The visualized lumbar vertebrae are intact with normal alignment. No focal bone lesion with abnormal signal can be seen. Evaluation of the intervertebral discs show: T12/L1: Intervertebral disc height is normal, with normal T2 signal. No focal disc herniation is seen. Bilateral T12/L1 neuroforamina are patent. Bilateral apophyseal joints are intact with normal alignment. L-1/L-2: Intervertebral disc height is normal, with normal T2 signal. No focal disc herniation is seen. Bilateral L1-L2 neuroforamina are patent. Bilateral apophyseal joints are intact with normal alignment. L2/L3: Intervertebral disc height is moderately decreased, with moderate loss of T2 signal. Mild posterior disc protrusion is seen. Bilateral L2-L3 neuroforamina are patent. Bilateral apophyseal joints are intact with normal alignment. L3/L4: Intervertebral disc height is moderately decreased, with mild loss of T2 signal. Mild posterior disc protrusion is seen. Bilateral L3-L4 neuroforamina are patent. There is mild spinal stenosis due to impingement by hypertrophic ligamentum flavum. Bilateral apophyseal joints are intact with normal alignment. Bilateral apophyseal joints show loss of joint space, sclerosis, facet hypertrophy and osteophytosis. L4/L5: Intervertebral disc height is moderately decreased, with mild loss of T2 signal. Mild broad-based disc bulge is seen. Bilateral L4-L5 neuroforamina are patent. Bilateral apophyseal joints are intact with normal alignment. Bilateral apophyseal joints show loss of joint space, sclerosis, facet hypertrophy and osteophytosis. L5/S1: Intervertebral disc height is normal, with normal T2 signal. No focal disc herniation is seen. Bilateral L5-S1 neuroforamina are patent. Bilateral apophyseal joints are intact with normal alignment. Conus medullaris is seen normally at L1 level. Posterior medial right hepatic lobe segment 6 T2 hyperintense lesion measuring 0.7 cm in diameter is seen at posterior capsular border, compatible with hepatic cyst or hemangioma. MR/MR lumbar spine wo con IMPRESSION: 1. Interval progression to Mild spinal stenosis at L3-L4 due to impingement by hypertrophic ligamentum flavum. 2. Unchanged Mild posterior disc protrusion at L2-L3 and L3-L4. 3. Unchanged Mild broad-based disc bulge at L4-L5. 4. No significant neural foraminal stenosis is seen. 5. 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 6. Right hepatic lobe 0.7 cm cyst or hemangioma.
== END 2023-12-04 17:04 | disposition home or self-care (01) ==
LOC: HO.MRI 17:03
PROVIDERS: PCP Internal Medicine; Visit Provider Internal Medicine
DX: M51.27 Other intervertebral disc displacement, lumbosacral region (principal)
CPT/HCPCS: 72148

== ENCOUNTER 2024-03-12 10:32 | Outpatient (REF) | payer OTHER, SELFPAY ==
--- NOTE | ~2024-03-12 | MM_ITS ---
EXAMINATION: MM SCREENING DIGITAL BREAST TOMOSYNTHESIS, BILATERAL CLINICAL INFORMATION: Screening. Asymptomatic. COMPARISON: Mammography: Comparison is made with available priors TECHNIQUE: Digital breast tomosynthesis is performed in both the craniocaudal and mediolateral oblique views along with computer-aided detection (CAD). Synthesized 2D images are generated from the tomosynthesis. FINDINGS: The breasts are heterogeneously dense, which may obscure small masses (ACR BI-RADS breast composition Category c). Left retropectoral implant is stable appearing. There are no significant masses, abnormal calcifications, or other abnormalities. MM/MM tomosynthesis screen imp BI IMPRESSION: No mammographic evidence of malignancy. ASSESSMENT: BI-RADS BI-RADS 2 - Benign Findings RECOMMENDATION: Routine annual mammography screening. 1 year F/U This examination should not preclude the clinical evaluation of a suspicious palpable abnormality. This patient's information was entered into a reminder system with a target due date for their next mammogram. Electronically signed by: Blessing Iniguez DO 04/09/2024 12:00 PM EDT
== END 2024-03-12 10:33 | disposition home or self-care (01) ==
LOC: HO.MAMMO 10:32
PROVIDERS: PCP Internal Medicine; Visit Provider Internal Medicine
DX: Z12.31 Encounter for screening mammogram for malignant neoplasm of breast (principal)
CPT/HCPCS: 77063; 77067

== ENCOUNTER → 2024-03-12 10:45 | Outpatient (BNV) | payer OTHER, SELFPAY | PROVIDERS: PCP Internal Medicine; Visit Provider Internal Medicine | DX: Z12.31 Encounter for screening mammogram for malignant neoplasm of breast (principal) | CPT/HCPCS: 77063; 77067 ==

== ENCOUNTER 2024-05-14 09:46 | Outpatient (AMB) | payer OTHER, SELFPAY ==
[2024-05-14 09:58] VITALS: BP 118/78; PULSE 73; BMI 24.8
--- NOTE | 2024-05-14 09:58 | A.OFFVIS_ITS ---
Vital Signs 05/14/24 09:58 Height 5 ft 8 in Weight 163 lb 2.273 oz BMI 24.8 BP 118/78 Blood Pressure Location Rt brachial Position Sitting Pulse 73 Pulse Source Pulse Oximeter Intake Visit Reasons: F/U NTMNG-conf Intake Note: Patient presents today for a follow-up on Nontoxic Multinodular Goiter Processing Spec Required: No Accompanied by: Self / Same As Patient Allergies No Known Allergies Allergy (Verified 06/18/23 16:22) Medication List - Last Reconciled 05/14/24 by Akua Del Rosario MD calcium carbonate-vitamin D3 600 mg-20 mcg (800 unit) (Caltrate 600 plus D) 1 tab PO DAILY cholecalciferol (vitamin D3) 25 mcg PO DAILY cyclobenzaprine 10 mg PO TID PRN escitalopram oxalate 5 mg PO DAILY ibuprofen 600 mg PO Q6H PRN ibuprofen 800 mg PO Q8H PRN HPI Comments Details: 58 YO F with PMHx solitary isthmus nontoxic thyroid nodule who is seen in F/U for the same. She was previously followed by Yumiko Bronson followed by Dr. Hernández and then Dr Mosher, last visit 07/11. 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 ?She has a 1.2 cm isthmus thyroid nodule. She underwent FNA biopsy by Dr. Hernández 04/02/18 with benign cytology. ?Currently denies any compressive symptoms. Intermittent palpitations. Has been having generalized anxiety, work related stress she thinks. Lost 6 lbs in 4 months. She does report significant hot flashes that have started once she came off her estrogen patches. She is status post hysterectomy. Postmenopausal. ?Denies any tremors, frequent bowel movements. Denies any ocular complaints, blurred or double vision. Denies hair loss, dry skin, heat or cold intolerance, weight gain, confusion. ?Denies any history of head or neck irradiation. Denies any family history of thyroid cancer. Does have a family history of hypothyroidism in aunt. ? Review of systems Constitutional: no fevers, chills HEENT: no changes in vision Cardiac: No chest pain, discomfort or palpitations. Pulmonary: No SOB GI:No abdominal pain, no nausea or vomiting, no anorexia, no blood in stool : no burning micturition, dysuria or increase in urinary frequency Physical exam General: sitting comfortably in no acute distress HEENT: normocephalic/atraumatic, moist oral mucosa Neck: supple, symmetrical, palpable 1 cm nodule in the isthmus, firm, , no dorsocervical or supraclavicular fat pads Cardiac: normal heart sounds Pulm: normal breath sounds B/L, no added breath sounds Abd: not distended, no tenderness Extremities: no edema, no signs of myxedema Neuro: AAO x3, Speech: normal, no facial droop, moving all 4 extremities [facility] Medical History (Updated 05/14/24 @ 10:43 by Akua Del Rosario MD) Hot flashes Solitary thyroid nodule Palpitations PAF (paroxysmal atrial fibrillation) Raynauds syndrome Vertigo Multinodular thyroid Surgical History H/O colonoscopy H/O left breast implant H/O vaginal hysterectomy Family History Father COPD (chronic obstructive pulmonary disease) Hypertension Mother Hypertension Pulmonary disease Glaucoma Social History Household Members: Spouse Alcohol intake: never Patient Tobacco Use Status: Former Tobacco user Physical Exam Vital Signs: Last Vital Signs Pulse 73 05/14/24 09:58 BP 118/78 05/14/24 09:58 BMI result Body Mass Index 24.8 Results Reviewed Results Reviewed: Laboratory Tests 06/26/22 12/12/22 12:38 16:53 TSH 0.99 1.87 Free T4 1.10 US THYROID 07/11 I reviewed the images myself, noted the solid hypoechoic TR 4 nodule measuring 1.1 cm in the maximum dimension in the right side of the isthmus. CLINICAL INFORMATION: Nontoxic multinodular goiter. COMPARISON: Ultrasound thyroid 01/05/2021 and 01/13/2020. TECHNIQUE: Linear transducer lee-scale and color Doppler examination with attention to the region of the thyroid. FINDINGS: SIZE: Measurements of the thyroid lobes and nodules are given in sagittal, anteroposterior and transverse dimensions respectively. Right Thyroid Lobe: 5.3 x 1.3 x 1.8 cm, volume 6.6 mL. Previously 4.9 x 1.1 x 1.9 cm, volume 5.4 mL. Parenchyma: The gland echotexture is homogeneous. Thyroid vascularity is normal. Left Thyroid Lobe: 5.1 x 1.3 x 1.6 cm, volume 5.6 mL. Previously 3.7 x 1.2 x 1.4 cm, volume 3.3 mL. Parenchyma: The gland echotexture is homogeneous. Thyroid vascularity is normal. Isthmus: 0.4 cm in maximum AP dimension. Previously 0.3 cm. Estimated total number of nodules greater than or equal to 1 cm: 0. Gang Tailer nodules are described as follows: 1. Location: Isthmus. Size: 1.1 x 0.5 x 1.0 cm, volume 0.3 mL. Previously: 1.0 x 1.0 x 0.5 cm, volume 0.25 mL. Nodule characteristics: Composition: Solid (2). Echogenicity: Hypoechoic (2). Shape: Not taller than wide (0). Margins: Smooth (0). Echogenic Foci: None (0). ACR TI-RADS total points: 4 Previous: 4 ACR TI-RADS category: 4 Previous: 4 Significant change in size (>/= 20% in 2 dimensions and minimal increase of 2 mm or 50% or greater increase in volume): None. Change in features: None. Change in ACR TI-RADS risk category: None. NODES: No lymphadenopathy is seen in the tissue surrounding the thyroid gland. US/US thyroid IMPRESSION: Solitary nodule in the isthmus, unchanged to last 2 exams. Assessment & Plan Assessment & Plan (1) Solitary thyroid nodule: Code(s): E04.1 - Nontoxic single thyroid nodule Category: Medical Plan: Patient with no family history of thyroid cancer, with no personal history of head or neck radiation, who was diagnosed with solitary isthmus nodule in 2017, underwent FNA in March 2018 with benign cytology. This nodule has remained stable on her last ultrasound in June 2022 at 1.1 cm. I reviewed the images myself which show the solid hypoechoic isthmus nodule measuring 1.1 cm. TR 4 category. She has not had an ultrasound with a past 2 years so I will order 1 now, however if that shows stable size of the nodule, given stability of this nodule over the past 6 years with benign cytology in 2018, if this nodule remained stable on next ultrasound, no need to follow up with repeat ultrasounds. Patient can be referred back to us if she has any clinical changes. Counseled about compressive symptoms. Her last thyroid function testing was in 2021 and she was biochemically euthyroid. She does have some symptoms of hot flashes, mild weight loss, anxiety. We will repeat thyroid function tests. Plan: -ordered thyroid ultrasound -ordered TSH, free T4 -if the above are normal, primary care physician can do annual thyroid function testing and and monitor this clinically and no need for follow up appointment with us (2) Hot flashes: Code(s): R23.2 - [place] Category: Medical Plan: Patient is postmenopausal. She has had a hysterectomy. She used to be on estradiol patches however stopped it a couple of years ago. She is describing severe hot flashes at night since she has stopped the patches. She has an upcoming appointment with her OBGYN. She has a history of breast cancer in an and, however she did not need progesterone given she does not have a uterus and has had a hysterectomy. Estrogen does not increase the risk breast cancer. She has never had a stroke, heart attack or blood clot history. She would be a good candidate to go back on the estradiol patches. However I will defer to her OBGYN. Also discussed that there other known hormonal options for postmenopausal hot flashes. She was just started on escitalopram for anxiety. There is modest benefit for mild hot flashes with the SSRIs. Briefly discussed the medication Veoazah which is the The first NK3R antagonist to be approved and available for clinical use. In one trial of over 500 postmenopausal women with [id number] hot flashes, fezolinetant 30 mg/day or 45 mg/day significantly reduced hot flash frequency and severity when compared with placebo After 12 weeks of therapy, the mean reductions in hot flash frequency for fezolinetant 45 mg, 30 mg, or placebo were 64, 59, and 45 percent, respectively. Women receiving fezolinetant 45 mg also had significant improvements in sleep disturbances when compared with placebo. Plan: -continue with escitalopram for anxiety, may benefit with the hot flashes -discussed with OBGYN regarding going back on estradiol patches -if interested in starting NK 3 R antagonist, patient can make a follow up appointment with me Plan I spent 30 minutes in reviewing the record, seeing the patient and documenting in the medical record. Orders: Orders Thyroid Stimulating Hormone Today E04.1 - Nontoxic single thyroid nodule Free T4 (Free Thyroxine) Today E04.1 - Nontoxic single thyroid nodule US thyroid Today E04.1 - Nontoxic single thyroid nodule Patient Instructions: Do blood work Do ultrasound thyroid I will message on portal with results If these are normal, follow with primary care with annual thyroid blood work with a TSH level If any clinical changes you can call our office to make an appointment Talk to your OBGYN about hot flashes and going back to estrogen patches If high risk consider other non hormonal options . You can read up about Veozah, if interested in starting I can prescribe it so make a follow up appointment to discuss further if needed Book: Estrogen Matters Coding Level of Care Code Est Pt Level 4 (93268) Diagnoses Solitary thyroid nodule E04.1 Hot flashes R23.2 Time Spent (min) 30
== END 2024-05-14 10:27 | disposition home or self-care (01) ==
PROVIDERS: PCP Internal Medicine; Visit Provider Student in an Organized Health Care Education/Training Program
DX: E04.1 Nontoxic single thyroid nodule (principal); R23.2 Flushing
CPT/HCPCS: 99214

== ENCOUNTER → 2024-05-14 09:46 | Outpatient (BNVA) | payer OTHER, SELFPAY | PROVIDERS: PCP Internal Medicine; Visit Provider Student in an Organized Health Care Education/Training Program ==

== ENCOUNTER 2024-05-14 10:36 | Outpatient (REF) | payer OTHER, SELFPAY ==
[2024-05-14 14:00] LABS: Free T4 (Free Thyroxine) 1.12 ng/dL (0.71-1.85); Thyroid Stimulating Hormone 1.13 uIU/mL (0.32-4.0)
== END 2024-05-14 10:37 | disposition home or self-care (01) ==
LOC: HO.10HDL 10:36
PROVIDERS: Visit Provider Student in an Organized Health Care Education/Training Program
DX: E04.1 Nontoxic single thyroid nodule (principal)
CPT/HCPCS: 36415; 84439; 84443

== ENCOUNTER 2024-08-20 12:34 | Outpatient (REF) | payer OTHER, SELFPAY ==
--- OUTSIDE RECORDS SUMMARY | 2024-08-20 12:52 | XMS_ITS | Encounter Summary ---
Author Organization [employer] Address [address] [facility] [address] [place] [address] Care Team Providers Care Device Test Engineer Name Role Phone Unavailable Primary Care Provider Unavailabl e Encounter Details Date Type Department Care Team (Latest Contact Info) Description 08/16/2020 Abstract [facility] CONVERSIONS Dental, Provider, DDS Social History Tobacco Use Types Packs/Day Years Used Date Smoking Tobacco: Never Assessed Comments Unknown Sex and Gender Information Value Date Recorded Sex Assigned at Female 09/26/2023 11:31 AM EST Legal Sex Female 5:36 PM EDT Gender Identity Female 09/26/2023 11:31 AM EST Sexual Orientation Choose not to disclose 2023 11:31 AM EST documented as of this encounter Plan of Treatment Not on file documented as of this encounter Visit Diagnoses Not on filedocumented in this encounter
--- OUTSIDE RECORDS SUMMARY | 2024-08-20 12:52 | XMS_ITS | Encounter Summary ---
Author Organization [employer] Address [address] [facility] [address] [place] [address] Care Team Providers Care Deputy Fire Marshal Name Role Phone Unavailable Primary Care Provider Unavailabl e Encounter Details Date Type Department Care Team (Latest Contact Info) Description 03/08/2021 [facility]VERSION[facility] Dental, Provider, DDS Social [...]
--- OUTSIDE RECORDS SUMMARY | 2024-08-20 12:52 | XMS_ITS | Clinical Summary ---
Author Organization [employer] Address [address] [facility] [address] [place] [address] Care Team Providers Care Pipe Layer Name Role Phone Unavailable Primary Care Provider Unavailabl e Allergies No known active allergies Medications meloxicam (Mobic) 15 MG tablet 11/05/2023 Active cyclobenzaprine (Flexeril) 10 MG tablet 10/30/2023 Active Calcium Acetate 667 MG tablet Take 2,001 mg by mouth. 05/24/2020 Active Social History Tobacco Use Types Packs/Day Years Used Date Smoking Tobacco: Never Passive Smoke Exposure: Never Smokeless Tobacco: Never Tobacco Cessation:Counseling Given: Not Answered Alcohol Use Standard Drinks/Week Comments Yes 0 (1 standard drink = 0.6 oz pur e alcohol) Comments Unknown Sex and Gender Information Value Date Recorded Sex Assigned at Female 09/26/2023 11:31 AM EST Legal Sex Female 5:36 PM EDT Gender Identity Female 09/26/2023 11:31 AM EST Sexual Orientation Choose not to disclose 2023 11:31 AM EST Plan of Treatment Health Maintenance Due Date Last Done Comments CT Colonography 1964 Colonoscopy 1964 Colorectal Cancer Screening 1964 Depression Screening 1964 FIT DNA/Cologuard 1964 FIT 1964 FOBT 1964 HIV Screening 1964 SDOH Screening 1964 Sigmoidoscopy 1964 Alcohol/Substance Use Screening 1976 Hepatitis C Screening 1982 DTaP/Tdap/Td Vaccines (1 - Tdap) 11/16/1983 Hepatitis B Vaccines (1 of 3 - 19+ 3-dose series) 11/16/1983 Pap Smear 1985 Cervical Cancer Screening 1994 HPV/Cotest 1994 Mammogram 2004 Pneumococcal Vaccine: 50+ Years (1 of 1 - PCV) 2014 Zoster Vaccines (1 of 2) 2014 Dental X-Ray: Full Mouth 08/17/2023 021, 09/05/2009, 05/11/2002 COVID-19 Vaccine ( - season) 2024 11/10/2021, 09/15/2020, 08/16/2020 Influenza Vaccine (#1) 2024 , 04/25/2022, 05/21/2021, Additional history exists Dental Oral Exam 05/24/2024 11/21/2023, , 03/08/2021, Additional history exists Dental Prophylaxis 05/24/2024 11/21/2023, 0 09/13/2021, 03/08/2021, Additional history exists Tobacco Screening 11/20/2024 11/21/2023 Dental X-Ray: Bitewings 11/21/2024 11/21/19, 09/13/2021, 08/16/2020, Additional history exists RSV Patients and Patients Aged 60 years or older (1 - 1-dose 75+ series) 11/16/2039 HIB Vaccines Aged Out No longer eligi ble based on patient's age to complete this topic HPV Vaccines Aged Out No longer eligi ble based on patient's age to complete this topic Hepatitis A Vaccines Aged Out No long er eligible based on patient's age to complete this topic IPV Vaccines Aged Out No longer eligi ble based on patient's age to complete this topic Meningococcal Vaccine Aged Out No jose r malcolm eligible based on patient's age to complete this topic RSV under 20 months Aged Out No longe r eligible based on patient's age to complete this topic Rotavirus Vaccines Aged Out No longer eligible based on patient's age to complete this topic Procedures Procedure Name Priority Date/Time Associated Diagnosis Comments Full PROPHYLAXIS - ADULT Routine 024 9:30 AM EDT BITEWINGS - 4 RADIOGRAPHIC IMAGES Routine 11/21/2023 9:30 AM EDT PERIODIC ORAL EVALUATION - ESTABLISHED PATIENT Routine 11/21/2023 9:30 AM EDT DIAGNOSTIC - DIAGNOSTIC IMAGING - INTRAORAL - COMPREHENSIVE SERIES OF RADIOGRAPHIC IMAGES Routine 08/16/2020 12:00 AM EST from Last 3 Months or Most Recently Relevant to Health Maintenance Insurance [facility] [place]
--- OUTSIDE RECORDS SUMMARY | 2024-08-20 12:52 | XMS_ITS | Encounter Summary ---
Author Organization [employer] Address [address] [facility] [address] [place] [address] Care Team Providers Care Deputy Assessor Name Role Phone Unavailable Primary Care Provider Unavailabl e Encounter Details Date Type Department Care Team (Latest Contact Info) Description 09/13/2021 Abstract [facility] CONVERSIONS Dental, Provider, DDS Social [...]
== END 2024-08-20 12:35 | disposition home or self-care (01) ==
LOC: HO.US 12:34
PROVIDERS: PCP Internal Medicine; Visit Provider Student in an Organized Health Care Education/Training Program
DX: E04.1 Nontoxic single thyroid nodule (principal)
CPT/HCPCS: 76536

== ENCOUNTER → 2024-08-20 12:36 | Outpatient (BNV) | payer OTHER, SELFPAY | PROVIDERS: PCP Internal Medicine; Visit Provider Radiology Diagnostic Radiology | DX: E04.1 Nontoxic single thyroid nodule (principal) | CPT/HCPCS: 76536 ==

== ENCOUNTER 2024-10-15 07:46 | Outpatient (REF) | payer OTHER, SELFPAY ==
--- NOTE | ~2024-10-15 | US_ITS ---
EXAMINATION: US SCREENING ULTRASOUND BREAST, BILATERAL CLINICAL INFORMATION: Dense breasts on mammography. Screening ultrasound. COMPARISON: Priors on PACS. TECHNIQUE: Ultrasound is performed using grayscale imaging and color Doppler. Imaging is performed to include the four quadrants and retroareolar region. Both breasts are imaged. FINDINGS: Right breast: There is no suspicious finding by ultrasound. There is no solid mass or focal architectural abnormality. Left breast: There is no suspicious finding by ultrasound. There is no solid mass or focal architectural abnormality. US/US breast BI complete IMPRESSION: No suspicious findings on screening breast ultrasound. ASSESSMENT: BI-RADS 1 - Negative RECOMMENDATION: 1 year F/U This patient's information was entered into a reminder system with a target due date for their next mammogram. Electronically signed by: Blessing Iniguez DO 10/15/2024 08:57 AM EDT
== END 2024-10-15 07:47 | disposition home or self-care (01) ==
LOC: HO.MAMMO 07:46
PROVIDERS: Visit Provider Internal Medicine
DX: Z15.01 Genetic susceptibility to malignant neoplasm of breast (principal); Z91.89 Other specified personal risk factors, not elsewhere classified
CPT/HCPCS: 76641

== ENCOUNTER → 2024-10-15 08:00 | Outpatient (BNV) | payer OTHER, SELFPAY | PROVIDERS: Visit Provider Internal Medicine | DX: R92.8 Other abnormal and inconclusive findings on diagnostic imaging of breast (principal) | CPT/HCPCS: 76641 ==

== ENCOUNTER 2025-02-18 11:12 | Outpatient (AMB) | payer OTHER, SELFPAY ==
--- NOTE | 2025-02-18 11:13 | A.OFFPC_ITS ---
Vital Signs 02/18/25 11:27 02/18/25 11:30 Height 5 ft 8 in Weight 182 lb BP 120/78 Blood Pressure Location Lt brachial Position Sitting Respiration 16 Pulse 71 Pulse Source Pulse Oximeter Temp 98.5 F Temp Source Temporal Artery Scan Pulse Oximetry (%) 99 Oxygen Delivery Method Room Air Intake Visit Reasons: routine - Dr. Cole pt. Fiscal Accountant Required: No Accompanied by: Self / Same As Patient Allergies No Known Allergies Allergy (Verified 02/18/25 11:13) Tobacco use date assessed: 02/18/25 HPI HPI Comments History of Present Illness Details 59 year old female with a past medical h istory of depression/anxiety, OA, low back pain, presenting to establish care Anxiety: went on lexapro 5mg daily. This helps with the stress from work. she helps with her mothers healthcare visits etc. 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 She endorses some fatigue, is feeling tired often. MSK: stable ol diclofenac 03/12/24-mammo Colonoscopy 11/10/23 ROS CONSTITUTIONAL: Denies weight loss, fever and chills. HEENT: Denies changes in vision and hearing. RESPIRATORY: Denies SOB and cough. CV: Denies palpitations and CP GI: Denies abdominal pain, nausea, vomiting and diarrhea. : Denies dysuria and urinary frequency. MSK: Denies new myalgia and joint pain. SKIN: Denies rash and pruritus. NEUROLOGICAL: Denies headache PSYCHIATRIC: Denies recent changes in mood. PHYSICAL EXAM: GENERAL: Alert and oriented x 3. NAD EYES: EOMI. Anicteric. HENT: Moist mucous membranes. No scleral icterus. No cervical lymphadenopathy. LUNGS: Clear to auscultation bilaterally. CARDIOVASCULAR: Regular rate and rhythm. No murmur. No JVD. ABDOMEN: Soft, non-tender +bs EXTREMITIES: No edema. Non-tender. SKIN: No rashes or lesions. Warm. NEUROLOGIC: No focal neurological deficits. CN II-XII grossly intact PSYCHIATRIC: Cooperative. Appropriate mood and affect [facility] Medical History Hot flashes Solitary thyroid nodule Palpitations PAF (paroxysmal atrial fibrillation) Raynauds syndrome Vertigo Multinodular thyroid Surgical History H/O colonoscopy (~11/10/23) H/O left breast implant H/O vaginal hysterectomy Family History Father COPD (chronic obstructive pulmonary disease) Hypertension Mother Hypertension Pulmonary disease Glaucoma Social History Household Members: Spouse Alcohol intake: never Patient Tobacco Use Status: Former Tobacco user e-Cigarette/Vaping Use: Never Used Questionnaire AUDIT C Alcohol Use Questionnaire (AUDIT-C) 1. How often do you have a drink containing alcohol?: Monthly or less 2. How many drinks containing alcohol do you have on a typical day when you are drinking?: 1 or 2 Total Score: 1 Physical exam (Primary Care) Vital Signs: Last Vital Signs Temp 98.5 F 02/18/25 11:30 Pulse 71 02/18/25 11:30 Resp 16 02/18/25 11:30 BP 120/78 02/18/25 11:30 Pulse Ox 99 02/18/25 11:30 Oxygen Delivery Method Room Air 02/18/25 11:30 Tobacco/Smoking Status: Tobacco use Status Tobacco use date assessed 02/18/25 02/18/25 11:14 Patient Tobacco Use Status Former Tobacco user 02/18/25 11:14 e-Cigarette/Vaping Use Never Used 02/18/25 11:32 Coding Level of Care Code New Pt Level 4 (56968) Complex EM visit Add On G2211 Diagnoses Fatigue, unspecified type R53.83 Fatigue type: unspecified Multinodular thyroid E04.2 Solitary thyroid nodule E04.1 Assessment & Plan Assessment & Plan (1) Fatigue: Code(s): R53.83 - Other fatigue Category: Medical Qualifiers: Fatigue type: unspecified Qualified Code(s): R53.83 - Other fatigue (2) Multinodular thyroid: Code(s): E04.2 - Nontoxic multinodular goiter Category: Medical (3) Solitary thyroid nodule: Code(s): E04.1 - Nontoxic single thyroid nodule Category: Medical Plan 59 year old to establish care Past medical, surgical, social reviewed anxiety-fairly stable on lexapro Fatigue-labs ordered Orders: Orders Complete Blood Count Auto Diff 02/18/25 E04.2 - Nontoxic multinodular goiter, R35.89 - Other polyuria, R53.83 - Other fatigue, Z13.220 - Encounter for screening for lipoid disorders Vitamin B12 and Folate 02/18/25 E04.2 - Nontoxic multinodular goiter, R35.89 - Other polyuria, R53.83 - Other fatigue, Z13.220 - Encounter for screening for lipoid disorders UA ClnCatch+Micro w/rflx Cult 02/18/25 E04.2 - Nontoxic multinodular goiter, R35.89 - Other polyuria, R53.83 - Other fatigue, Z13.220 - Encounter for screening for lipoid disorders Vitamin D 25-OH (D2 and D3) 02/18/25 E04.2 - Nontoxic multinodular goiter, R35.89 - Other polyuria, R53.83 - Other fatigue, Z13.220 - Encounter for screening for lipoid disorders Lyme IgG/IgM w/reflex to WB 02/18/25 R53.83 - Other fatigue NISREEN Reflex Titer and Pattern 02/18/25 R53.83 - Other fatigue Comprehensive Met. Panel 02/18/25 E04.2 - Nontoxic multinodular goiter, R35.89 - Other polyuria, R53.83 - Other fatigue, Z13.220 - Encounter for screening for lipoid disorders Lipid Panel 02/18/25 E04.2 - Nontoxic multinodular goiter, R35.89 - Other polyuria, R53.83 - Other fatigue, Z13.220 - Encounter for screening for lipoid disorders TSH reflex Free T4 02/18/25 E04.2 - Nontoxic multinodular goiter, R35.89 - Other polyuria, R53.83 - Other fatigue, Z13.220 - Encounter for screening for li poid disorders Hemoglobin A1c 02/18/25 E04.2 - Nontoxic multinodular goiter, R35.89 - Other polyuria, R53.83 - Other fatigue, Z13.220 - Encounter for screening for lipoid disorders
--- OUTSIDE RECORDS SUMMARY | 2025-02-18 11:19 | XMS_ITS | Patient Health Record ---
Author Organization [facility] Address [address] [place] [address] Care Team Providers Care Underwriter Solicitation Director Name Role Phone Douglas (RETIRED) Magnus BARBOSA Primary Care Provide r Unavailable Toby Marvin Unavailable [phone] Allergies No Known Allergies Reason For Referral No Information Medications Medication SIG (Take, Route, Fr equency, Duration) Notes Start Date End Date Status Flonase 50 MCG/ACT 2 spray in each nost ril Nasally prn Active Motrin as needed Active Claritin as needed Active Calcium Active Vitamin D3 1000 UNIT 1 capsule Orally Once a day Active Immunizations Vaccine Route Administration Date Status Comme nts Influenza Unknown 07/21/2023 Administered Social History Tobacco Use: Social History Observation Description Date Details (start date - stop date) Never Smoker NA - NA Tobacco Use/Smoking Question Answer Notes Patient is a nonsmoker Alcohol Screen Question Answer Notes Did you have a drink contain ing alcohol in the past year? Yes How often did you have a dri nk containing alcohol in the past year? Monthly or less (1 point) How many drinks did you have on a typical day when you were drinking in the past year? 1 or 2 drinks (0 point) How often did you have 6 or more drinks on one occasion in the past year? Never (0 point) Points 1 Interpretation Negative Section Notes: Nonsmoker; no sig alcohol Nonsmoker; no sig alcohol Problems Problem Type SNOMED Code ICD Code Onset Dates Problem Status W/U Status Risk Notes Problem 103598879 Colon cancer screening (Z12.11) Active confirmed Problem 821310088 Encounter for screening for malignant neoplasm of colon (Z12.11) Active confirmed Problem 461579187 Abdominal bloati ng (R14.0) Active confirmed Problem Diverticulosis o f large intestine without perforation or abscess without bleeding (K57.30) Active confirmed Problem 525922717633829 Preprocedural examination (Z01.818) Active confirmed Problem 74713665 Irritable bowel syndrome, unspecified type (K58.9) Active confirmed Problem 333421603 Gaseous abdomina l distention (R14.0) Active confirmed Problem 559960947 Family history o f colon cancer in mother (Z80.0) Active confirmed Plan Of Treatment Pending Test Test Name Order Date CELIAC PANEL #10 09/24/2017 Future Test Test Name Order Date COLONOSCOPY 09/24/2017 COLONOSCOPY 08/01/2023 Insurance Providers Payer Name Payer Address Payer Phone Subscriber Number Group Number Insured Name Patient Relationship to Insured Coverage Start Date Coverage End Date [employer] [place] [address] [address] [place] [address] [id number] REHANA MALDONADO Self - patient is the insured Medical (General) History Medical History History ICD Code Vertigo--has had vestibular therapy Raynaud's syndrome A-fib--resolved--has palpitations--not i n Afib presently Denies RI,DM,CVA,lung disease,renal dise ase She describes lactose intolerance Negative screening colonoscopy in 11/2017 Surgical History Surgery Date(Month/Year) Left breast implant 1988 Left breast implant replaced 2019
--- OUTSIDE RECORDS SUMMARY | 2025-02-18 11:19 | XMS_ITS | Encounter Summary ---
Author Organization [facility] Address [address] [facility] [address] [place] [address] Care Team Providers Care Color Paste Mixing Supervisor Name Role Phone Unavailable Primary Care Provider [...]
[2025-02-18 11:30] VITALS: BP 120/78; PULSE 71; RESP 16; TEMP 36.9; O2SAT 99
== END 2025-02-18 12:02 | disposition home or self-care (01) ==
LOC: HO.HMCHD 11:12
PROVIDERS: PCP Internal Medicine; Visit Provider Internal Medicine
DX: R53.83 Other fatigue (principal); E04.2 Nontoxic multinodular goiter; E04.1 Nontoxic single thyroid nodule

== ENCOUNTER 2025-02-25 07:27 | Outpatient (REF) | payer OTHER, SELFPAY ==
--- OUTSIDE RECORDS SUMMARY | 2025-02-25 07:30 | XMS_ITS | Encounter Summary ---
Author Organization [facility] Address [address] [facility] 7[address] [place] [address] Care Team Providers Care Project Engineer Name Role Phone Unavailable Primary Care [...]
--- OUTSIDE RECORDS SUMMARY | 2025-02-25 07:30 | XMS_ITS | Patient Health Record ---
Author Organization [facility] Address [address] [place] [address] Care Team Providers Care Glass Furnace Operator Name Role Phone Douglas (RETIRED) Magnus BARBOSA Primary Care Provide r Unavailable Toby Marvin Unavailable [phone] Allergies No Known Allergies Reason For Referral [...] Problem Status W/U Status Risk Notes Problem 220912209 Colon cancer screening (Z12.11) Active confirmed Problem 859158655 Encounter for screening for malignant neoplasm of colon (Z12.11) Active confirmed Problem 132005942 Abdominal bloati ng (R14.0) Active confirmed Problem Diverticulosis o f large intestine without perforation or abscess without bleeding (K57.30) Active confirmed Problem 771532506806060 Preprocedural examination (Z01.818) Active confirmed Problem 32158726 Irritable bowel syndrome, unspecified type (K58.9) Active confirmed Problem 908351244 Gaseous abdomina l distention (R14.0) Active confirmed Problem 263816428 Family history o f colon cancer in mother (Z80.0) Active confirmed Plan Of Treatment Pending Test Test Name Order Date CELIAC PANEL #10 09/24/2017 Future Test Test Name Order Date COLONOSCOPY 09/24/2017 COLONOSCOPY 08/01/2023 Insurance Providers Payer Name Payer Address Payer Phone Subscriber Number Group Number Insured Name Patient Relationship to Insured Coverage Start Date Coverage End Date [employer] [place] [address] [address] [place] [address] [id number] 2 REHANA MALDONADO Self - patient is the insured Medical (General) History Medical History History ICD Code Vertigo--has had vestibular therapy Raynaud's syndrome A-fib--resolved--has palpitations--not i n Afib presently Denies [place],DM,CVA,lung disease,renal dise ase She describes lactose intolerance Negative screening colonoscopy in 11/2017 Surgical History Surgery Date(Month/Year) Left breast implant 1988 Left breast implant replaced 2019
[2025-02-25 07:48] LABS: MANUAL DIFF FLAG NO
[2025-02-25 07:53] LABS: Hematocrit 42.9 % (37.0-47.0); Hemoglobin 14.5 g/dl (12.0-16.0); Imm Gran Abs Auto 0.01 X10*3/uL (0.00-0.03); Imm Gran Pct Auto 0.2 % (0.0-0.4); Lymphocytes Absolute Auto 1.2 X10*3/uL (1.2-4.9); Mean Corpuscular HGB Conc 33.8 g/dl (31.0-35.0); Mean Corpuscular Hemoglobin 29.8 pg (27.0-33.0); Mean Corpuscular Volume 88.1 fL (80.0-98.0); NRBC Abs Auto 0.000 X10*3/uL (0.0-0.012); NRBC Pct Auto 0.0 /100WBC (0.0-0.2); Platelet Count 234 X10*3/uL (160-400); Red Blood Count 4.87 X10*6/uL (4.20-5.50); White Blood Count 5.1 X10*3/uL (4.8-10.8)
[2025-02-25 08:03] LABS: Hemoglobin A1C 131.6286 umol/L; Total Hemoglobin (HGBA1C) 3841.1891 umol/L
[2025-02-25 08:12] LABS: Alanine Aminotransferase 18 U/L (0-31); Albumin Level 4.5 g/dL (3.5-5.0); Alkaline Phosphatase 68 U/L (39-117); Anion Gap 9 (12-20); Aspartate Amino Transferase 21 U/L (5-31); Blood Urea Nitrogen 11 mg/dL (9-16); Calcium 8.9 mg/dL (8.4-10.2); Carbon Dioxide 29 mmol/L (22-29); Chloride 107 mmol/L (96-108); Cholesterol 192 mg/dL (<200); Estimated Glomerular Filt Rate > 60; HDL Cholesterol 43 mg/dL (>40); Potassium 4.4 mmol/L (3.3-5.1); Sodium 141 mmol/L (135-145); Total Protein 6.9 g/dL (6.5-8.0); Triglycerides 90 mg/dL (<150)
[2025-02-25 08:24] LABS: Appearance Urine Clear; Glucose Urine UA Negative (Negative); PH 6.0 (5.0-9.0); Specific Gravity - Urine 1.015 (1.005-1.025); UMIC TRIGGER UACC YES
[2025-02-25 08:49] LABS: Folate 9.2 ng/mL (> or = 4.0)
[2025-02-25 09:15] LABS: Vitamin B12 342 pg/mL (200-900)
[2025-02-26 08:33] LABS: Lyme Abs Screen <0.90 index
[2025-03-02 09:49] LABS: Anti Nuclear Antibody Screen NEGATIVE (NEGATIVE)
[2025-03-02 15:59] LABS: Vitamin D 25-OH, D2 <4 ng/mL; Vitamin D 25-OH, D3 35 ng/mL; Vitamin D 25-OH, Total 35 ng/mL (30-100)
== END 2025-02-25 07:28 | disposition home or self-care (01) ==
LOC: HO.LAB 07:27
PROVIDERS: PCP Internal Medicine; Visit Provider Internal Medicine
DX: Z01.84 Encounter for antibody response examination (principal); Z13.6 Encounter for screening for cardiovascular disorders; Z13.220 Encounter for screening for lipoid disorders; E04.2 Nontoxic multinodular goiter; R35.89 Other polyuria; R53.83 Other fatigue
CPT/HCPCS: 36415; 80053; 80061; 81001; 82306; 82607; 82746; 83036; 84443; 85025; 86038; 86617; 86618

== ENCOUNTER 2025-05-12 13:53 | Outpatient (REF) | payer OTHER, SELFPAY | END 2025-05-12 13:54 | disposition home or self-care (01) | LOC: HO.LAB 13:53 | PROVIDERS: PCP Internal Medicine; Visit Provider Nurse Practitioner Family | DX: R31.29 Other microscopic hematuria (principal); Z13.89 Encounter for screening for other disorder | CPT/HCPCS: 51798; 81003; 88112 ==

== ENCOUNTER 2025-05-12 13:53 | Outpatient (AMB) | payer OTHER, SELFPAY ==
--- NOTE | 2025-05-12 14:01 | MHC.OFFVIS ---
Intake Visit Reasons: Microscopic Hematuria Intake Note: Patient is present for MICROSCOPIC HEMATURIA Urology Medication:NONE Antibiotic Allergy:NONE Blood Thinner:NONE TODAY'S PVR:94ML'S Healthcare Management Required: No Allergies No Known Allergies Allergy (Verified 05/12/25 14:41) Medication List - Last Reconciled 05/12/25 by TORRES Robb calcium carbonate-vitamin D3 600 mg-20 mcg (800 unit) (Caltrate plus D) 1 tab PO DAILY cholecalciferol (vitamin D3) 25 mcg PO DAILY diclofenac sodium 75 mg PO BID PRN escitalopram oxalate 5 mg PO DAILY 90 days HPI Comments Details: Opal is a very pleasant 59-year-old female patient of Dr. Sebastian Zheng. She has a past medical history of solitary thyroid nodule, palpitations, paroxysmal AFib, Raynaud's syndrome, vertigo, and multinodular thyroid. She presents to the office today as a new patient for microscopic hematuria. In discussion with the patient today she reports having recently followed up with her PCP at which time urinalysis noted microscopic hematuria on 2 occasions and recommendations were made for urology referral for further assessment evaluation. In office urinalysis results reviewed with the patient today no microscopic hematuria noted. When asked she denies any previous history of workplace chemical exposure and or nicotine dependence. She does however report her mother has recently been diagnosed with bladder cancer and was a smoker. She otherwise denies any bothersome urinary issues. I discussed reasons for blood in the urine may include but are not limited to kidney stones, cancer in the urinary tract, kidney stone disease or inflammatory conditions of the urinary tract. She denies urinary urgency, urinary frequency, incontinence, nocturia, gross/visible hematuria, dysuria, foul smelling urine, changes to urinary stream, flank pain, fever, and or chills. She is happy with her current voiding parameters. All questions were answered. [facility] Medical History Hot flashes Solitary thyroid nodule Palpitations PAF (paroxysmal atrial fibrillation) Raynauds syndrome Vertigo Multinodular thyroid Surgical History H/O colonoscopy (~11/10/23) H/O left breast implant H/O vaginal hysterectomy Family History Father COPD (chronic obstructive pulmonary disease) Hypertension Mother Hypertension Pulmonary disease Glaucoma Social History Household Members: Spouse Alcohol intake: never Patient Tobacco Use Status: Former Tobacco user e-Cigarette/Vaping Use: Never Used Review of Systems Const All systems reviewed & are unremarkable except as noted in HPI and below Physical Exam Const General: cooperative, healthy appearing, comfortable, no acute distress, well developed, alert and awake Orientation/consciousness: patient oriented x3 Limitations: no limitations HEENT Head: Yes normal to inspection, Yes normocephalic and Yes atraumatic Ears: hearing grossly normal bilaterally Eyes General: appearance normal, both eyes and all related structures Neck Neck: Yes normal visual inspection and Yes trachea midline Chest Chest palpation & inspection: normal inspection of the chest Resp Effort & Inspection: normal respiratory effort and able to speak in complete sentences Cardio Rate: regular rate GI Inspection: Yes normal to inspection General: Yes no CVA tenderness Back/Spine/Pelvis Back: no CVA tenderness Skin General skin exam: no rashes or lesions noted Neuro General: patient oriented x3 Extrem General: Yes normal to inspection Psych Appearance: grossly normal and well kempt Mental Status: mental status grossly normal Speech and movement: Normal speech and movement present and Clear speech present Affect: normal affect Attitude: cooperative Thought process: Normal thought process present Thought content: Normal thought content present Insight: Fair insight present (Psych) Judgement: Fair judgement present (Psych) Office Procedures Post Void Residual Post Residual Void Post Void Residual (PVR): 94 13003-Beod Void Residual by ultrasound Results AMB Urinalysis, Automated UA Leukoctes 0 Kaley/uL Last Edit by SHANIA Vivar on 05/12/25 14:11 UA Nitrite Negative Last Edit by SHANIA Vivar on 05/12/25 14:11 UA Urobilinogen 0.2 mg/dL Last Edit by SHANIA Vivar on 05/12/25 14:11 UA Protein 0 mg/dL Last Edit by SHANIA Vivar on 05/12/25 14:11 UA pH 6.0 Last Edit by SHANIA Vivar on 05/12/25 14:11 UA Blood 0 Mu/uL Last Edit by SHANIA Vivar on 05/12/25 14:11 UA Specific [place] 1.020 Last Edit by SHANIA Vivar on 05/12/25 14:11 UA Ketone Negative Last Edit by SHANIA Vivar on 05/12/25 14:11 UA Bilirubin 0 mg/dL Last Edit by SHANIA Vivar on 05/12/25 14:11 UA Glucose 0 mg/dL Last Edit by SHANIA Vivar on 05/12/25 14:11 Results Reviewed Results Reviewed: Laboratory Last Values Urine pH (Auto) 6.0 05/12/25 14:10 Specific [place] (Auto) 1.020 05/12/25 14:10 Urine Protein (Auto) 0 mg/dL 05/12/25 14:10 Glucose (UA)(Auto) 0 mg/dL 05/12/25 14:10 Urine Ketones (Auto) Negative 05/12/25 14:10 Urine Blood (Auto) 0 Mu/uL 05/12/25 14:10 Urine Nitrite (Auto) Negative 05/12/25 14:10 Urine Bilirubin (Auto) 0 mg/dL 05/12/25 14:10 Urine Urobilinogen (Auto) 0.2 mg/dL 05/12/25 14:10 Leukocyte Esterase (Auto) 0 Kaley/uL 05/12/25 14:10 Assessment & Plan Assessment & Plan (1) Microscopic hematuria: Code(s): R31.29 - Other microscopic hematuria Category: Medical Plan In office urinalysis results reviewed with the patient today; as noted above; will send for urine cytology. We discussed potential causes of microscopic hematuria as well as further treatment options and risks and benefits of these treatment options. All questions were answered. Will continue with surveillance monitoring. Will obtain retroperitoneal ultrasound for further assessment evaluation. She currently denies any bothersome urinary issues or concerns. She reports be happy with current voiding parameters. Follow-up in 6 months with imaging; or sooner with any issues, concerns, and or questions. Orders: Orders AMB Urinalysis Automated Today Z13.9 - Encounter for screening, unspecified US retroperitoneal comp Today R31.29 - Other microscopic hematuria Urine Cytology Today R31.29 - Other microscopic hematuria Patient Instructions: The patient had an opportunity to ask questions regarding the treatment plan. All questions were answered. Physical exam, labs, and imaging were discussed and reviewed in detail. As well as risks, benefits, and discussion of treatment choices. No major barriers to understanding were identified. The patient expressed understanding and agreement with the above treatment plan. The patient was made aware they should contact our office by phone for worsening of their current condition, the appearance of new symptoms, or with any questions or concerns. Compliance is encouraged with any medications and follow up testing that is ordered. It is a privilege to be allowed the opportunity to participate in? your urological care.? Again, if you have any questions or concerns If you have any questions or concerns please do not hesitate to contact me. The office is [phone]. This note is constructed using voice recognition software. While every effort has been made to ensure accuracy tomographic tech errors may have been included. Yours sincerely, TORRES Robb Coding Level of Care Code New Pt Level 3 (14880) Diagnoses Microscopic hematuria R31.29 CPT Codes Post Residual Void - PVR CPT Code: 87862-Rast Void Residual by ultrasound ([id number])
--- OUTSIDE RECORDS SUMMARY | 2025-05-12 17:47 | XMS_ITS | Patient Health Record ---
Author Organization [facility] Address [address] [place] [address] Care Team Providers Care Veneer Clipper Helper Name Role Phone Douglas (RETIRED) Magnus BARBOSA Primary Care Provide r Unavailable Toby Marvin Unavailable [phone] Allergies No Known Allergies Reason For Referral [...] Problem Status W/U Status Risk Notes Problem Colon cancer screening (612544662) Colon cancer screening (Z12.11) Active confirmed Problem Screening for malignant neoplasm of colon (321085713) Encounter for screening for malignant neoplasm of colon (Z12.11) Active confirmed Problem Abdominal bloating (480361979) Abdominal bloating (R14.0) Active confirmed Problem Diverticular disease of colon (354328489) Diverticulosis of large intestine without perforation or abscess without bleeding (K57.30) Active confirmed Problem Preprocedural examination (339522765522192) Preprocedural examination (Z01.818) Active confirmed Problem Irritable bowel syndrome (40317988) Irritable bowel syndrome, unspecified type (K58.9) Active confirmed Problem Flatulence, eructation and gas pain (166385567) Gaseous abdominal distention (R14.0) Active confirmed Problem Family history of malignant neoplasm of gastrointestinal tract (947346485) Family history of colon cancer in mother (Z80.0) Active confirmed Plan Of Treatment Pending Test Test Name Order Date CELIAC PANEL #10 09/24/2017 Future Test Test Name Order Date COLONOSCOPY 09/24/2017 COLONOSCOPY 08/01/2023 Insurance Providers Payer Name Payer Address Payer Phone Subscriber Number Group Number Insured Name Patient Relationship to Insured Coverage Start Date Coverage End Date BLUE [employer]ITS [employer] [address] [address] [place] [address] [id number] REHANA MALDONADO Self - patient is the insured Medical (General) History Medical History History ICD Code Vertigo--has had vestibular therapy Raynaud's syndrome A-fib--resolved--has palpitations--not i n Afib presently Denies [place],DM,CVA,lung disease,renal dise ase She describes lactose intolerance Negative screening colonoscopy in 11/2017 Surgical History Surgery Date(Month/Year) Left breast implant 1988 HARIS2010 Left breast implant replaced 2019
--- OUTSIDE RECORDS SUMMARY | 2025-05-12 17:47 | XMS_ITS | Encounter Summary ---
Author Organization [facility] Address [address] [facility] 7t [place] [address] Care Team Providers Care Platform Architect Name Role Phone Unavailable Primary Care Provider [...]
--- OUTSIDE RECORDS SUMMARY | 2025-05-12 17:47 | XMS_ITS | Clinical Summary ---
Author Organization [facility] Address [address] [facility] 7t [place] [address] Care Team Providers Care Mining Detail Draftsperson Name Role Phone Unavailable Primary Care Provider [...] Screening 1964 SDOH Screening 1964 Sigmoidoscopy 1964 Disability Screening 1964 Alcohol/Substance Use Screening 1976 Hepatitis C Screening 1982 DTaP/Tdap/Td Vaccines (1 - Tdap) 11/16/1983 Pap Smear 1985 Cervical Cancer Screening 1994 HPV/Cotest 1994 Mammogram 2004 Pneumococcal Vaccine: 50+ Years (1 of 1 - PCV) 2014 Zoster Vaccines (1 of 2) 2014 Dental X-Ray: Full Mouth 08/17/2023 021, 09/05/2009, 05/11/2002 Dental Oral Exam 05/24/2024 11/21/2023, , 03/08/2021, Additional history exists Dental Prophylaxis 05/24/2024 11/21/2023, 0 09/13/2021, 03/08/2021, Additional history exists Tobacco Screening 11/20/2024 11/21/2023 Dental X-Ray: Bitewings 11/21/2024 11/21/19 24, 09/13/2021, 08/16/2020, Additional history exists COVID-19 Vaccine ( season) 2025 11/10/2021, 09/15/2020, 08/16/2020 Influenza Vaccine (#1) 2025 , 04/25/2022, 05/21/2021, Additional history exists RSV Patients and Patients [...] patient's age to complete this topic Hepatitis B Vaccines Aged Out No long er eligible based on patient's age to complete this topic IPV Vaccines Aged Out No longer eligi ble based on patient's age to complete this topic Meningococcal B Vaccine Aged Out No l onger eligible based on patient's age to complete [...] ESTABLISHED PATIENT Routine 11/21/2023 9:30 AM EDT INTRAORAL - COMPLETE SERIES OF RADIOGRAPHIC IMAGES Routine 08/16/2020 12:00 AM EST from Last 3 Months or Most Recently Relevant to Health Maintenance Insurance [facility]
--- OUTSIDE RECORDS SUMMARY | 2025-05-12 17:47 | XMS_ITS | Encounter Summary ---
Author Organization [facility] Address [address] [facility] [address]t [place] [address] Care Team Providers Care Property Investor Name Role Phone Unavailable Primary Care Provider [...]
--- OUTSIDE RECORDS SUMMARY | 2025-05-12 17:47 | XMS_ITS | Encounter Summary ---
Author Organization [facility] Address [address] [facility] [address] [place] [address] Care Team Providers Care Cotton Chopper Name Role Phone Unavailable Primary Care Provider [...]
== END 2025-05-12 15:15 | disposition home or self-care (01) ==
LOC: HO.HUSH 13:54
PROVIDERS: PCP Internal Medicine; Visit Provider Nurse Practitioner Family
DX: Z13.9 Encounter for screening, unspecified (principal); R31.29 Other microscopic hematuria
CPT/HCPCS: 99203

== ENCOUNTER 2025-05-13 13:29 | Outpatient (AMB) | payer OTHER, SELFPAY ==
--- NOTE | 2025-05-13 13:34 | MHC.PC.OV ---
Vital Signs 05/13/25 14:10 Height 5 ft 8 in Weight 189 lb BMI 28.7 BP 126/64 Blood Pressure Location Rt brachial Position Sitting Respiration 16 Pulse 78 Pulse Source Pulse Oximeter Temp 98.1 F Temp Source Oral Pulse Oximetry (%) 97 Oxygen Delivery Method Room Air Intake Visit Reasons: cpe Intake Note: cpe Home Based Assistant Required: No Allergies No Known Allergies Allergy (Verified 05/13/25 14:07) Tobacco use date assessed: 05/13/25 Dental Screening Dental Screen Date: 05/13/25 Did you have a dental visit in the last 12 months?: Yes Did you have a dental problem in the last 6 months where you did not have access to dental care?: Yes Was dental information given to patient?: Patient has dentist HPI HPI Comments History of Present Illness Details 59 year old female with a past medical history of depression/anxiety, OA, low back pain, presenting for annual exam Anxiety: went on lexapro 5mg daily. This helps with the stress from work. she helps with her mothers healthcare visits etc. 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 She has gained weight but attributes this to overeating at work MSK: stable on diclofenac Recently saw [facility] urology for microscopic hematuria-cytology sent MSK: intermittent back pain flares. Stable on diclofenac 03/12/24-mammo. Had six month ultrasound. Scheduled for mammo next week Colonoscopy 11/10/23 ROS CONSTITUTIONAL: Denies weight loss, fever and chills. HEENT: Denies changes in vision and hearing. RESPIRATORY: Denies SOB and cough. CV: Denies palpitations and CP GI: Denies abdominal pain, nausea, vomiting and diarrhea. : Denies dysuria and urinary frequency. MSK: Denies new myalgia and joint pain. SKIN: Denies rash and pruritus. NEUROLOGICAL: Denies headache PSYCHIATRIC: Denies recent changes in mood. PHYSICAL EXAM: GENERAL: Alert and oriented x 3. NAD EYES: EOMI. Anicteric. HENT: Moist mucous membranes. No scleral icterus. No cervical lymphadenopathy. LUNGS: Clear to auscultation bilaterally. CARDIOVASCULAR: Regular rate and rhythm. No murmur. No JVD. ABDOMEN: Soft, non-tender +bs EXTREMITIES: No edema. Non-tender. SKIN: No rashes or lesions. Warm. NEUROLOGIC: No focal neurological deficits. CN II-XII grossly intact PSYCHIATRIC: Cooperative. Appropriate mood and affect [facility] Medical History Hot flashes Solitary thyroid nodule Palpitations PAF (paroxysmal atrial fibrillation) Raynauds syndrome Vertigo Multinodular thyroid Surgical History H/O colonoscopy (~11/10/23) H/O left breast implant H/O vaginal hysterectomy Family History Father COPD (chronic obstructive pulmonary disease) Hypertension Mother Hypertension Pulmonary disease Glaucoma Maternal Grandmother Alcoholism Social History Household Members: Spouse Housing: House Alcohol intake: never Patient Tobacco Use Status: Former Tobacco user e-Cigarette/Vaping Use: Never Used service: No Current occupational status: employed Current occupation: registered nurse Current occupational exposures/hazards: No Cognitive needs: No Hearing needs: No Vision needs: No Questionnaire PHQ-9 Over the last 2 weeks, how often have you been bothered by any of the following problems? 1. Little interest or pleasure in doing things: not at all 2. Feeling down, depressed, or hopeless: not at all 3. Trouble falling or staying asleep, or sleeping too much: not at all 4. Feeling tired or having little energy: several days 5. Poor appetite or overeating: not at all 6. Feeling bad about yourself - or that you are a failure or have let yourself or your family down: not at all 7. Trouble concentrating on things, such as reading the newspaper or watching television: not at all 8. Moving or speaking so slowly that other people could have noticed. Or the opposite - being so fidgety or restless that you have been moving around a lot more than usual: not at all 9. Thoughts that you would be better off or of hurting yourself in some way: not at all Total score: 1 Depression Screening Interpretation: Negative Depression Screening Done: Yes 74955 - PHQ-9 Billing: Yes Source: Developed by Drs. Toby Ragland, Lupe B.Ran Moss and colleagues, with an educational radha from [employer]. Thrive Questionnaire I am a: Patient What is your living situation today?: I have a steady place to live Within the past 12 months, did the food you bought not last and you didn't have the money to get more?: Never true Within the past 12 months, did you worry whether your food would run out before you got money to buy more?: Never true Do you have trouble paying for medicines?: No Do you have trouble getting transportation to medical appointments?: No Do you have trouble paying your heating and electricity bill?: No Do you have trouble taking care of your child, family member or friend?: No Do you have trouble with day-to-day activities such as bathing, preparing meals, shopping, managing finances, etc.?: No Are you currently unemployed and looking for a job?: No Are you interested in more education?: No Please select the resources that you would like help with: Care for elder or disabled and None Currently or been in a relationship where the following occur: No concerns reported THRIVE Score: 0 AUDIT C Alcohol Use Questionnaire (AUDIT-C) 1. How often do you have a drink containing alcohol?: Monthly or less 2. How many drinks containing alcohol do you have on a typical day when you are drinking?: 1 or 2 3. How often do you have six or more drinks on one occasion?: Never Total Score: 1 YOUSIF-7 AMB Questionnaire YOUSIF-7 Date YOUSIF - 7 assessed: 05/13/25 Feeling nervous, anxious, or on edge: 1 = Several days Not being able to stop or control worryin = Not at all Worrying too much about different things: 0 = Not at all Trouble relaxin = Not at all Being so restless that it is hard to sit still: 0 = Not at all Becoming easily annoyed or irritable: 0 = Not at all Feeling afraid as if something awful might happen: 0 = Not at all Total YOUSIF-7 score (0-4 normal; 5-9 mild; 10-14 moderate; 15-21 severe): 1 Source: Developed by Drs. Toby Ragland, Ran Lyles and colleagues, with an educational radha from [employer]. Physical exam (Primary Care) Vital Signs: Last Vital Signs Temp 98.1 F 05/13/25 14:10 Pulse 78 05/13/25 14:10 Resp 16 05/13/25 14:10 BP 126/64 05/13/25 14:10 Pulse Ox 97 05/13/25 14:10 Oxygen Delivery Method Room Air 05/13/25 14:10 BMI result Body Mass Index 28.7 Tobacco/Smoking Status: Tobacco use Status Tobacco use date assessed 05/13/25 05/13/25 14:12 Patient Tobacco Use Status Former Tobacco user 05/13/25 14:09 e-Cigarette/Vaping Use Never Used 05/13/25 14:09 PHQ-9: PHQ-9 Score PHQ-9: Total score 1 05/13/25 14:20 Depression Screening Interpretation: Negative Currently or been in a relationship where the following occur: No concerns reported Coding Level of Care Code Est Pt Prev Care 40-64y(71965) Diagnoses Physical exam Z00.00 Solitary thyroid nodule E04.1 Microscopic hematuria R31.29 Tick bite, unspecified site, initial encounter W57.XXXA Encounter type: initial encounter Site of tick bite: unspecified site Additional Codes PHQ-9 - 86469 - PHQ-9 Billing: Yes ([id number]) Assessment & Plan Assessment & Plan (1) Physical exam: Code(s): Z00.00 - Encounter for general adult medical examination without abnormal findings (2) Solitary thyroid nodule: Code(s): E04.1 - Nontoxic single thyroid nodule Category: Medical (3) Microscopic hematuria: Code(s): R31.29 - Other microscopic hematuria Category: Medical (4) Tick bite: Code(s): W57.XXXA - Bitten or stung by nonvenomous insect and other nonvenomous arthropods, initial encounter Category: Medical Qualifiers: Encounter type: initial encounter Site of tick bite: unspecified site Qualified Code(s): W57.XXXA - Bitten or stung by nonvenomous insect and other nonvenomous arthropods, initial encounter Plan CPE Interval history reviewed preventive measures discussed UTD Anxiety is stable on lexapro tick bite four weeks ago. She will check lyme in 2 weeks Orders: Orders Lyme IgG/IgM w/reflex to WB Today W57.XXXA - Bitten or stung by nonvenomous insect and other nonvenomous arthropods, initial encounter
[2025-05-13 14:10] VITALS: BP 126/64; PULSE 78; RESP 16; TEMP 36.7; O2SAT 97; BMI 28.7
--- OUTSIDE RECORDS SUMMARY | 2025-05-13 15:29 | XMS_ITS | Encounter Summary ---
Author Organization [facility] Address [address] [facility] [address]t [place] [address] Care Team Providers Care Entry Level Manager Name Role Phone Unavailable Primary Care Provider [...]
--- OUTSIDE RECORDS SUMMARY | 2025-05-13 15:29 | XMS_ITS | Encounter Summary ---
Author Organization [employer] Address [address] [facility] [address] [place] [address] Care Team Providers Care Tool Room Attendant Name Role Phone Unavailable Primary Care Provider [...]
--- OUTSIDE RECORDS SUMMARY | 2025-05-13 15:29 | XMS_ITS | Patient Health Record ---
Author Organization [facility] Address [address] [place] [address] Care Team Providers Care Log Scaler Name Role Phone Douglas (RETIRED) Magnus BARBOSA Primary Care Provide r Unavailable Toby Marvin Unavailable [phone] Allergies No Known Allergies Reason For Referral [...] Status Risk Notes Problem Colon cancer screening (919727206) Colon cancer screening (Z12.11) Active confirmed Problem Screening for malignant neoplasm of colon (147647092) Encounter for screening for malignant neoplasm of colon (Z12.11) Active confirmed Problem Abdominal bloating (428246373) Abdominal bloating (R14.0) Active confirmed Problem Diverticular disease of colon (730096730) Diverticulosis of large intestine without perforation or abscess without bleeding (K57.30) Active confirmed Problem Preprocedural examination (148840587602741) Preprocedural examination (Z01.818) Active confirmed Problem Irritable bowel syndrome (65934663) Irritable bowel syndrome, unspecified type (K58.9) Active confirmed Problem Flatulence, eructation and gas pain (909338318) Gaseous abdominal distention (R14.0) Active confirmed Problem Family history of malignant neoplasm of gastrointestinal tract (994992545) Family history of colon cancer in mother [...] BENEFITS [place]AT[place] [address] [address] [place] [address] [id number] 2 REHNAA MALDONADO Self - patient is the insured Medical (General) History Medical History History ICD Code Vertigo--has had vestibular therapy Raynaud's syndrome A-fib--resolved--has palpitations--not i n Afib presently Denies [place],DM,CVA,lung disease,renal dise ase She describes lactose intolerance Negative screening colonoscopy in 11/2017 Surgical History Surgery Date(Month/Year) Left breast implant 1988 [id number] Left breast implant replaced 2019
--- OUTSIDE RECORDS SUMMARY | 2025-05-13 15:29 | XMS_ITS | Encounter Summary ---
Author Organization [employer] Address [address] [facility] [address] [place] [address] Care Team Providers Care Sorter Laundry Articles Name Role Phone Unavailable Primary Care Provider [...]
--- OUTSIDE RECORDS SUMMARY | 2025-05-13 15:29 | XMS_ITS | Clinical Summary ---
Author Organization [employer] Address [address] [facility] [address] [place] [address] Care Team Providers Care Squirrel Man Name Role Phone Unavailable Primary Care Provider [...] Most Recently Relevant to Health Maintenance Insurance [employer] [place]
== END 2025-05-13 14:45 | disposition home or self-care (01) ==
LOC: HO.HMCFM 13:30
PROVIDERS: PCP Internal Medicine; Visit Provider Internal Medicine
DX: Z00.00 Encounter for general adult medical examination without abnormal findings (principal); E04.1 Nontoxic single thyroid nodule; R31.29 Other microscopic hematuria; W57.XXXA Bitten or stung by nonvenomous insect and other nonvenomous arthropods, initial encounter

== ENCOUNTER → 2025-05-13 13:29 | Outpatient (BNVA) | payer OTHER, SELFPAY | PROVIDERS: PCP Internal Medicine; Visit Provider Internal Medicine | DX: Z00.00 Encounter for general adult medical examination without abnormal findings (principal); E04.1 Nontoxic single thyroid nodule; R31.29 Other microscopic hematuria; F41.9 Anxiety disorder, unspecified; M54.50 Low back pain, unspecified; T14.8XXA Other injury of unspecified body region, initial encounter; W57.XXXA Bitten or stung by nonvenomous insect and other nonvenomous arthropods, initial encounter; Y93.9 Activity, unspecified; Y92.9 Unspecified place or not applicable; Y99.9 Unspecified external cause status; Z79.899 Other long term (current) drug therapy; Z13.31 Encounter for screening for depression; Z13.39 Encounter for screening examination for other mental health and behavioral disorders | CPT/HCPCS: 96127 ==

== ENCOUNTER 2025-05-20 10:29 | Outpatient (REF) | payer OTHER, SELFPAY ==
--- NOTE | ~2025-05-20 | MM_ITS ---
EXAMINATION: MM SCREENING DIGITAL BREAST TOMOSYNTHESIS, BILATERAL CLINICAL INFORMATION: Screening. Asymptomatic. COMPARISON: Mammography: Comparison is made with available priors TECHNIQUE: Digital breast mammography with tomosynthesis is performed in both the craniocaudal and mediolateral oblique views along with computer-aided detection (CAD). FINDINGS: The breasts are heterogeneously dense, which may obscure small masses. Left retropectoral implant is stable appearing. There are no significant masses, abnormal calcifications, or other abnormalities. MM/MM tomosynthesis screening BI IMPRESSION: No mammographic evidence of malignancy. ASSESSMENT: BI-RADS Category 1: Negative RECOMMENDATION: Routine annual mammography screening. 1 year F/U This examination should not preclude the clinical evaluation of a suspicious palpable abnormality. This patient's information was entered into a reminder system with a target due date for their next mammogram. Electronically signed by: Blessing Iniguez DO 05/23/2025 09:45 AM [facility] [place]
--- OUTSIDE RECORDS SUMMARY | 2025-05-20 11:52 | XMS_ITS | Encounter Summary ---
Author Organization [employer] Address [address] [facility] [address] [place] [address] Care Team Providers Care Load Checker Name Role Phone Unavailable Primary Care Provider [...]
--- OUTSIDE RECORDS SUMMARY | 2025-05-20 11:52 | XMS_ITS | Patient Health Record ---
Author Organization [facility] Address [address] [place] [address] Care Team Providers Care Business Librarian Name Role Phone Douglas (RETIRED) aMgnus BARBOSA Primary Care Provide r Unavailable Toby Marvin Unavailable [phone] Allergies No Known Allergies Reason For Referral [...] Status Risk Notes Problem Colon cancer screening (757403770) Colon cancer screening (Z12.11) Active confirmed Problem Screening for malignant neoplasm of colon (088500882) Encounter for screening for malignant neoplasm of colon (Z12.11) Active confirmed Problem Abdominal bloating (946914861) Abdominal bloating (R14.0) Active confirmed Problem Diverticular disease of colon (227768119) Diverticulosis of large intestine without perforation or abscess without bleeding (K57.30) Active confirmed Problem Preprocedural examination (737053060784517) Preprocedural examination (Z01.818) Active confirmed Problem Irritable bowel syndrome (08312227) Irritable bowel syndrome, unspecified type (K58.9) Active confirmed Problem Flatulence, eructation and gas pain (167149655) Gaseous abdominal distention (R14.0) Active confirmed Problem Family history of malignant neoplasm of gastrointestinal tract (122988482) Family history of colon cancer in mother [...] [employer]EFITS [place] [place] [address] [address] [place] [address] [id number] 2 REHANA MALDONADO Self - patient is the insured Medical (General) History Medical History History ICD Code Vertigo--has had vestibular therapy Raynaud's syndrome A-fib--resolved--has palpitations--not i n Afib presently Denies [place],DM,CVA,lung disease,renal dise ase She describes lactose intolerance Negative screening colonoscopy in 11/2017 Surgical History Surgery Date(Month/Year) Left breast implant 1988 [id number] Left breast implant replaced 2019
--- OUTSIDE RECORDS SUMMARY | 2025-05-20 11:52 | XMS_ITS | Encounter Summary ---
Author Organization [employer] Address [address] [facility] [address] [place] [address] Care Team Providers Care Direct Chill Casting Operator Name Role Phone Unavailable Primary Care Provider [...]
--- OUTSIDE RECORDS SUMMARY | 2025-05-20 11:52 | XMS_ITS | Encounter Summary ---
Author Organization [employer] Address [address] [facility] 7[address] [place] [address] Care Team Providers Care Process Lead Name Role Phone Unavailable Primary Care Provider [...]
--- OUTSIDE RECORDS SUMMARY | 2025-05-20 11:52 | XMS_ITS | Clinical Summary ---
Author Organization [employer] Address [address] [facility] [address] [place] [address] Care Team Providers Care E Commerce Merchant Name Role Phone Unavailable Primary Care Provider [...] Most Recently Relevant to Health Maintenance Insurance [employer] [place]
== END 2025-05-20 10:30 | disposition home or self-care (01) ==
LOC: HO.MAMMO 10:29
PROVIDERS: PCP Internal Medicine; Visit Provider Internal Medicine
DX: Z12.31 Encounter for screening mammogram for malignant neoplasm of breast (principal)
CPT/HCPCS: 77063; 77067

== ENCOUNTER → 2025-05-20 11:00 | Outpatient (BNV) | payer OTHER, SELFPAY | PROVIDERS: PCP Internal Medicine; Visit Provider Internal Medicine | DX: Z12.31 Encounter for screening mammogram for malignant neoplasm of breast (principal) | CPT/HCPCS: 77063; 77067 ==

== ENCOUNTER 2025-06-09 15:42 | Outpatient (REF) | payer OTHER, SELFPAY ==
--- OUTSIDE RECORDS SUMMARY | 2025-06-09 20:46 | XMS_ITS | Clinical Summary ---
Author Organization [employer] Address [address] [facility] [address] [place] [address] Care Team Providers Care Corner Cutter Name Role Phone Unavailable Primary Care Provider [...] Most Recently Relevant to Health Maintenance Insurance [employer] [place]
--- OUTSIDE RECORDS SUMMARY | 2025-06-09 20:46 | XMS_ITS | Encounter Summary ---
Author Organization [employer] Address [address] [facility] [address] [place] [address] Care Team Providers Care Stone Carver Name Role Phone Unavailable Primary Care Provider [...]
--- OUTSIDE RECORDS SUMMARY | 2025-06-09 20:46 | XMS_ITS | Encounter Summary ---
Author Organization [employer] Address [address] [facility] [address] [place] [address] Care Team Providers Care Studio Sales Associate Name Role Phone Unavailable Primary Care Provider [...]
--- OUTSIDE RECORDS SUMMARY | 2025-06-09 20:46 | XMS_ITS | Encounter Summary ---
Author Organization [employer] Address [address] [facility] [address] [place] [address] Care Team Providers Care District Engineer Name Role Phone Unavailable Primary Care [...]
--- OUTSIDE RECORDS SUMMARY | 2025-06-09 20:46 | XMS_ITS | Patient Health Record ---
Author Organization [facility] Address [address] [place] [address] Care Team Providers Care Sales Training Manager Name Role Phone Douglas (RETIRED) Magnus BARBOSA Primary Care Provide r Unavailable Toby Marvin Unavailable [phone] Allergies No Known Allergies Reason For Referral No Information Medications Medication SIG (Take, Route, Frequency, Duration) Notes Start Date End Date Status Flonase 50 MCG/ACT Suspension 2 spray in each nostril Nasally prn Active Motrin as needed Active Claritin as needed Active Calcium Active Vitamin D3 1000 UNIT Capsule 1 capsule Orally Once a day Active Immunizations Vaccine Route Administration Date Status Comme nts Influenza Unknown 07/21/2023 Administered Social History Tobacco Use: Social History Observation Description Date Details (start date - stop date) Never Smoker NA - NA Social History Drugs/Alcohol: Social Info Question Answer Notes Alcohol Screen Did you have a drink containing alcohol in the past year? Yes How often did you have a drink containing alcohol in the past year? Monthly or less (1 point) How many drinks did you have on a typical day when you were drinking in the past year? 1 or 2 drinks (0 point) How often did you have 6 or more drinks on one occasion in the past year? 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[place] [employer] Notes: Nonsmoker; no sig alcohol Nonsmoker; no sig alcohol Problems Problem Type SNOMED Code ICD Code Onset Dates Problem Status W/U Status Risk Notes Problem Colon cancer screening (594626375) Colon cancer screening (Z12.11) Active confirmed Problem Screening for malignant neoplasm of colon (950820275) Encounter for screening for malignant neoplasm of colon (Z12.11) Active confirmed Problem Abdominal bloating (161769457) Abdominal bloating (R14.0) Active confirmed Problem Diverticular disease of colon (750184166) Diverticulosis of large intestine without perforation or abscess without bleeding (K57.30) Active confirmed Problem Preprocedural examination (296139575279276) Preprocedural examination (Z01.818) Active confirmed Problem Irritable bowel syndrome (42163513) Irritable bowel syndrome, unspecified type (K58.9) Active confirmed Problem Flatulence, eructation and gas pain (734263774) Gaseous abdominal distention (R14.0) Active confirmed Problem Family history of malignant neoplasm of gastrointestinal tract (766491921) Family history of colon cancer in mother [...] BENEFITS [place]MIN[employer]AT[employer] [place] [address] [address] [place] [address] [id number] 2 REHANA MALDONADO Self - patient is the insured Medical (General) History Medical History History ICD Code Vertigo--has had vestibular therapy Raynaud's syndrome A-fib--resolved--has palpitations--not i n Afib presently Denies [place],DM,CVA,lung disease,renal dise ase She describes lactose intolerance Negative screening colonoscopy in 11/2017 Surgical History Surgery Date(Month/Year) Left breast implant 1988 Left breast implant replaced 2019
[2025-06-10 09:38] LABS: Lyme Abs Screen <0.90 index
== END 2025-06-09 15:43 | disposition home or self-care (01) ==
LOC: HO.LAB 15:42
PROVIDERS: PCP Internal Medicine; Visit Provider Internal Medicine
DX: Z01.84 Encounter for antibody response examination (principal); W57.XXXA Bitten or stung by nonvenomous insect and other nonvenomous arthropods, initial encounter
CPT/HCPCS: 36415; 86617; 86618